=== PATIENT | male | born 1965 | race Caucasian/White ===

== ENCOUNTER 2017-02-21 12:47 | Observation (INO) ==
[2017-02-21 13:46] LABS: Basophils # 0.1 K/mcL (0.0-0.2); Basophils % 0.8 %; Eosinophils # 0.1 K/mcL (0.0-0.6); Eosinophils % 1.4 %; Hematocrit 49.1 % (37.5-50.1); Immature Granulocytes % 0.5 % (0-4); Lymphocytes # 2.6 K/mcL (0.6-4.6); Lymphocytes % 28.5 %; Mean Corpuscular HGB Conc 32.6 g/dL (31.6-35.5); Mean Corpuscular Hemoglobin 28.7 pg (28.0-33.3); Mean Corpuscular Volume 88.2 fL (83.0-100.0); Mean Platelet Volume 10.6 fL (9.4-12.4); Monocytes # 0.9 K/mcL (0.0-1.3); Neutrophils # 5.4 K/mcL (1.6-8.9); Platelet Count 236 K/mcL (140-400); Red Blood Count 5.57 M/mcL (4.19-5.50); Red Cell Distribution Width 13.4 % (11.5-14.5); Segmented Neutrophils % 58.8 %
[2017-02-21 13:59] LABS: BUN/Creatinine Ratio 12 (6-26); Blood Urea Nitrogen 18 mg/dL (8-26); Calcium 9.5 mg/dL (8.6-10.8); Carbon Dioxide 21 mEq/L (19-29); Chloride 106 mEq/L (98-109); Glucose 101 mg/dL (70-99); Osmolality,Calculated 286 (280-300); Potassium 4.7 mEq/L (3.5-4.5); Sodium 137 mEq/L (136-145); eGFR For African Americans > 60 (> 60); eGFR For Non-African Americans 50 (> 60)
[2017-02-21] MEDS ORDERED: Aspirin 325 MG TABLET PO ONE (14:22)
--- NOTE | 2017-02-21 14:45 | Emergency Department Note ---
START Narrative - START START: Notified by lab of positive troponin. Patient placed in fast track been on a monitor. Awaiting a bed in Main Department. Aspirin ordered. Patient evaluated and in no distress.
[2017-02-21] MEDS ORDERED: *HR* Heparin 5,000 UNIT/ML VIAL IVP PRN (14:46)
[2017-02-21] MEDS ORDERED: *HR* Heparin 5,000 UNIT/ML VIAL IVP ONE (14:46)
--- NOTE | 2017-02-21 14:46 | Emergency Department Note ---
Disposition Clinical Impression: Non-STEMI (non-ST elevated myocardial infarction) Disposition: Admitted As Inpatient Condition: Fair Time of Disposition: 14:50 Chest Pain HPI - General Chief Complaint: ED Chest Pain Stated Complaint: chest discomfort Time Seen by Provider: 02/21/17 14:43 Source: patient Limitations: no limitations Vital Signs Reviewed: Yes Nursing Notes Reviewed: Yes - History of Present Illness HPI Narrative: 51-year-old male who presents complaining of chest pain. States he had it off and on for the last couple of days. Was seen in outside facility on Sunday and had a troponin done that was negative. Comes back in here today because of persistent intermittent pain. States when he does anything the pain gets worse. Patient does have a history of previous DE in the past. He saw his physician who was concerned that he may have a pulmonary embolism. And was sent in for evaluation for possible PE. Pt complaint: chest pain Onset (ago): day(s) Duration: intermittent Onset: during exertion Pain Location: substernal, left chest Severity: mild, moderate Severity scale (1-10): 3 Quality: tightness, heaviness Pain Radiation: none Improves with: rest Worsens with: exertion Associated symptoms: Reports: nausea Treatments prior to arrival chest pain: none - Related Data Home Medications Medication Instructions Recorded Confirmed CloNIDine HCl 0.1 mg PO DAILY PRN MDD 1 08/08/16 02/21/17 Nitroglycerin [Nitrostat] 0.4 mg SL Q5M PRN 08/08/16 02/21/17 Omeprazole [PriLOSEC] 40 mg PO DAILY 08/08/16 02/21/17 TraZODone 50 mg PO HS 08/08/16 02/21/17 Valsartan [Diovan] 40 mg PO DAILY 08/08/16 02/21/17 Aspirin Enteric Coated [Aspirin EC] 81 mg PO DAILY 02/21/17 02/21/17 Atorvastatin Calcium [Lipitor] 20 mg PO HS 02/21/17 02/21/17 Carvedilol [Coreg] 25 mg PO BID 02/21/17 02/21/17 Spironolactone [Aldactone] 100 mg PO DAILY 02/21/17 02/21/17 Allergies Allergy/AdvReac Type Severity Reaction Status Date / Time lisinopril AdvReac Mild Cough Verified 02/21/17 12:58 losartan [Losartan] AdvReac Mild BP BOTTOMS Verified 02/21/17 12:58 OUT tamsulosin AdvReac See Verified 02/21/17 12:58 Comments All systems ED: reviewed and negative except as stated. Constitutional: Denies: fever, chills, weakness, weight change Eyes: Denies: eye pain, eye discharge, vision change ENT ED: Denies: ear pain, throat pain, dental pain, hearing loss, epistaxis, congestion, dysphagia Cardiovascular: Reports: chest pain. Denies: palpitations, dyspnea on exertion , edema, syncope Respiratory: Denies: cough, dyspnea, wheezes, hemoptysis, stridor Gastrointestinal: Denies: abdominal pain, nausea, vomiting, diarrhea, constipation, hematemesis, melena, hematochezia Genitourinary: Denies: urgency, dysuria, frequency, hematuria Musculoskeletal: Denies: back pain, neck pain, arthralgia, myalgia Integumentary: Denies: rash, abrasion, lesions Neurological: Denies: headache, weakness, numbness, paresthesias, confusion, abnormal gait, vertigo Psychiatric: Denies: anxiety, depression, suicidal thoughts, homicidal thoughts , auditory hallucinations, visual hallucinations Endocrine: Denies: fatigue Hematological/Lymphatic: Denies: easy bleeding, easy bruising Allergic/Immunologic: Denies: facial swelling, urticaria Chest Pain PMH - Past Medical History Medical history: Reports: arthritis, CVA, GERD, hyperlipidemia, hypertension Surgical history: Reports: cholecystectomy, coronary bypass (CABG) Psychiatric history: Reports: no psych history - Social History Smoking Status: Never smoker Alcohol use: Reports: none Drug use: Reports: marijuana Physical Exam - General Limitations: no limitations General appearance: alert, in no apparent distress - Head Head exam: atraumatic, normocephalic, normal inspection - Eye Eye exam: Present: normal appearance, PERRL, EOMI - ENT ENT exam: normal exam, normal oropharynx, mucous membranes moist - Neck Neck exam: Present: normal inspection, full ROM, trachea midline - Respiratory Respiratory exam: Present: normal lung sounds bilaterally - Cardiovascular Cardiovascular exam: Present: regular rate, normal rhythm, normal heart sounds - Abdominal Exam Abdominal exam: Present: soft, Non-Tender. Absent: tenderness, distention, guarding, rebound, rigidity - Extremities Exam Extremities exam: Present: normal inspection, full ROM. Absent: tenderness, pedal edema - Expanded Lower Extremity Exam Neurovascular/Tendon exam: Absent: motor deficit, sensory deficit, tendon deficit Gait: observed and normal - Back Exam Back exam: Present: normal inspection - Neurological Exam Neurological exam: Present: alert, oriented X3 - Psychiatric Psychiatric exam: Present: normal affect, normal mood - Skin Skin exam: Present: warm Course - Reevaluation(s) Reevaluation #1: 51-year-old with history of previous DE who had 5 way bypass back in 2009 states been having intermittent exertional chest pain for last several days. Seen at outside facility had a negative troponin 2 days ago but continued to have symptoms. On arrival here he does have an elevated troponin of 0.11 with no acute change on his EKG. Appears that this is non-STEMI. We will start anticoagulation and consult cardiology. Time: 14:46 Reevaluation #2: The patient relates that his doctor was concerned about a pulmonary embolism. We ordered a CTA of the chest however his creatinine was elevated and the patient after discussion with him would not consent to the to the CT scan due to possible damage to his kidneys so a VQ scan was ordered and we are waiting on that at this time. Time: 16:40 - Consultations Consultation #1: Discussed with Dr. Duffy cardiology heparinized and admit. Time: 14:53 Consultation #2: Discussed with Dr. Li, admit. Time: 15:06 Vital Signs Temperature 98.0 F 02/21/17 12:53 Pulse Rate 65 02/21/17 12:53 Respiratory Rate 16 02/21/17 12:53 Blood Pressure 136/78 02/21/17 12:53 O2 Sat by Pulse Oximetry 98 02/21/17 12:53 Temperature 98.0 F 02/21/17 12:53 Pulse Rate 62 02/21/17 16:01 Respiratory Rate 18 02/21/17 16:01 Blood Pressure 179/99 02/21/17 16:01 O2 Sat by Pulse Oximetry 96 02/21/17 16:01 Oxygen Delivery Oxygen Delivery Room Air Chest Pain - Lab Data Result diagrams: 02/21/17 13:35 02/21/17 13:35 Lab Results 02/21/17 02/21/17 02/21/17 Range/Units 13:35 13:35 13:35 WBC 9.2 (4.3-11.1) K/mcL RBC 5.57 H (4.19-5.50) M/mcL Hgb 16.0 (12.9-16.9) g/dL Hct 49.1 (37.5-50.1) % MCV 88.2 (83.0-100.0) fL MCH 28.7 (28.0-33.3) pg MCHC 32.6 (31.6-35.5) g/dL RDW 13.4 (11.5-14.5) % Plt Count 236 (140-400) K/mcL MPV 10.6 (9.4-12.4) fL Immature Gran % 0.5 (0-4) % Seg Neutrophils % 58.8 % Lymphocytes % 28.5 % Monocytes % 10.0 % Eosinophils % 1.4 % Basophils % 0.8 % Neutrophils # 5.4 (1.6-8.9) K/mcL Lymphocytes # 2.6 (0.6-4.6) K/mcL Monocytes # 0.9 (0.0-1.3) K/mcL Eosinophils # 0.1 (0.0-0.6) K/mcL Basophils # 0.1 (0.0-0.2) K/mcL PT (9.4-12.1) Seconds INR APTT (26.0-36.0) Seconds Sodium 137 (136-145) mEq/L Potassium 4.7 H (3.5-4.5) mEq/L Chloride 106 (98-109) mEq/L Carbon Dioxide 21 (19-29) mEq/L BUN 18 (8-26) mg/dL Creatinine 1.48 H (0.72-1.25) mg/dL Est GFR ( Amer) > 60 (> 60) Est GFR (Non-Af Amer) 50 L (> 60) BUN/Creatinine Ratio 12 (6-26) Glucose 101 H (70-99) mg/dL Calculated Osmolality 286 (280-300) Calcium 9.5 (8.6-10.8) mg/dL Troponin I 0.11 H* (0-0.03) ng/mL 02/21/17 Range/Units 13:35 WBC (4.3-11.1) K/mcL RBC (4.19-5.50) M/mcL Hgb (12.9-16.9) g/dL Hct (37.5-50.1) % MCV (83.0-100.0) fL MCH (28.0-33.3) pg MCHC (31.6-35.5) g/dL RDW (11.5-14.5) % Plt Count (140-400) K/mcL MPV (9.4-12.4) fL Immature Gran % (0-4) % Seg Neutrophils % % Lymphocytes % % Monocytes % % Eosinophils % % Basophils % % Neutrophils # (1.6-8.9) K/mcL Lymphocytes # (0.6-4.6) K/mcL Monocytes # (0.0-1.3) K/mcL Eosinophils # (0.0-0.6) K/mcL Basophils # (0.0-0.2) K/mcL PT 11.2 (9.4-12.1) Seconds INR 1.0 APTT 34.5 (26.0-36.0) Seconds Sodium (136-145) mEq/L Potassium (3.5-4.5) mEq/L Chloride (98-109) mEq/L Carbon Dioxide (19-29) mEq/L BUN (8-26) mg/dL Creatinine (0.72-1.25) mg/dL Est GFR ( Amer) (> 60) Est GFR (Non-Af Amer) (> 60) BUN/Creatinine Ratio (6-26) Glucose (70-99) mg/dL Calculated Osmolality (280-300) Calcium (8.6-10.8) mg/dL Troponin I (0-0.03) ng/mL Heart Score - Score History: Highly Suspicious EKG: Non Specific repolarisation Disturbance Age: 45-65 Risk Factors: Equal/Greater than 3 risk factor or history of atherosclerotic disease Troponin: 1-3x normal limit HEART Score Total: 7 Critical Care Time Critical Care Time: Yes Total Critical Care Time: 30 Attestation: The high probability of a clinically significant, sudden or life threatening deterioration of the [cardiovascular] system(s) required my full and direct attention, intervention and personal management. The aggregate critical care time was [30] minutes. This time is in addition to time spent performing reported procedures but includes the following: [x] Data Review and interpretation [x] Patient assessment and monitoring of vital signs [x] Documentation [x] Medication orders and management
[2017-02-21 15:03] LABS: Prothrombin Time 11.2 Seconds (9.4-12.1)
[2017-02-21 15:06] LABS: Activated Partial Thrombo Time 34.5 Seconds (26.0-36.0)
--- NOTE | 2017-02-21 15:27 | Cardiology Consult Note ---
Date of Encounter: 02/21/17 Time of Encounter: 15:15 Assessment and Plan (1) Non-STEMI (non-ST elevated myocardial infarction) Current Visit: Yes Status: Acute Initial troponin mildly elevated at 0.11. Trend for total of 3. Symptoms vary. Reports cold symptoms a week and a half ago. Those symptoms resolved, then he started having chest tightness over recent days brought on by exertion and cold air/drinks, deep breaths. Reports fatigue, episodes of diaphoresis. Denies worsening dyspnea. Reports symptoms similar to prior anginal symptoms, but not as severe. Heating pad has been helping with symptoms. In setting of CKD stage 3, creatinine near baseline 1.48. Denies active chest pain, but reports "soreness" and there is tenderness on palpation. On heparin gtt. Resume home ASA, statin, BB. Recommend checking echo to evaluate structure and function. Echo 2014 EF preserved, moderate diastolic dysfunction. No significant EKG changes. NPO after midnight for ischemic eval (possible stress test vs. LHC) in AM depending on troponin trend and echo results. (2) CAD (coronary artery disease) Current Visit: Yes Status: Chronic Hx of 5 vessel CABG in 2009 at [facility]. ASA, Statin, BB, JOSE-I, ARB. Stress test vs. LHC in AM depending on troponin trend and echo. Qualifiers: Coronary Disease-Associated Artery/Lesion type: unspecified vessel or lesion type [place] vs. transplanted heart: [place] heart Associated angina: angina presence unspecified Qualified Code(s): I25.10 - Atherosclerotic heart disease of [place] coronary artery without angina pectoris (3) CKD (chronic kidney disease) stage 3, GFR 30-59 ml/min Current Visit: Yes Status: Chronic Known stage 3 CKD, follows with Dr. Linton as outpt. Current creatinine near baseline, 1.48. Will monitor closely. (4) HTN (hypertension) Current Visit: Yes Status: Acute Currently controlled. Continue to monitor and adjust as necessary. Qualifiers: Hypertension type: essential hypertension Qualified Code(s): I10 - Essential (primary) hypertension Discussion w patient/family: The assessment and plan as outlined above was discussed with the patient and/or family members who expressed understanding and agreement. All questions were answered. Thank you for involving us in the care of your patient. Please call with any questions. I will discuss all the above with Dr. Orquidea Duffy and make changes as necessary. History of Present Illness Consult date: 02/21/17 Requesting physician: Ta Riggs Consult reason: elevated troponin, chest pain Chief complaint: chest tightness History of present illness: Mr. Cleveland is a 51 year old male with PMH of CAD s/p CABG in 2009, CVA, HTN, CKD stage 3 that presented to ED for chest tightness. He reports approximately a week and a half ago he developed cold like symptoms--congestion, cough with productive green sputum. Those symptoms resolved and in recent days he began experiencing chest tightness across his chest and fatigue. He describes the chest tightness and pain as burning, states it is brought on by exertion and also by cold air or drinks. He has been using a heating pad for relief. He reports he feels sore soreness/tenderness right now, but no active pain. He states symptoms feel similar to past anginal equivalent, but not as severe. He denies radiation of pain, but reports intermittent bilateral upper extremity numbness from shoulders to elbows. Denies any facial drooping or slurred speech. He had 2 episodes of diaphoresis over the past week and a half. No worsening of dyspnea. He was evaluated at [place] 2 days ago and reportedly had a negative troponin. Troponin here 0.11 and cardiology consulted. Prior CV testing: Stress test 07/15/15: Perfusion imaging negative for ischemia or infarct. Gated EF 61%. Echo 07/15/15: EF 55-60%, moderate diastolic dysfunction, mildly dilated left atrium. Past Med Surg Social Fam HX - Past Medical History Medical history: arthritis, coronary artery disease, CVA, GERD, hyperlipidemia, hypertension Psychiatric history: no psych history - Past Surgical History Surgical History: cholecystectomy, coronary bypass (CABG) - Social History Smoking Status: Never smoker Smokeless Tobacco Status: No Alcohol use: none Drug use: marijuana Medications and Allergies CloNIDine HCl 0.1 mg PO DAILY PRN MDD 1 08/08/16 [History] Nitroglycerin [Nitrostat] 0.4 mg SL AD PRN 08/08/16 [History] Omeprazole [PriLOSEC] 40 mg PO DAILY 08/08/16 [History] TraZODone 50 mg PO HS 08/08/16 [History] Valsartan [Diovan] 40 mg PO DAILY 08/08/16 [History] Aspirin Enteric Coated [Aspirin EC] 81 mg PO DAILY 02/21/17 [History] Atorvastatin Calcium [Lipitor] 20 mg PO HS 02/21/17 [History] Carvedilol [Coreg] 25 mg PO BID 02/21/17 [History] Spironolactone [Aldactone] 100 mg PO DAILY 02/21/17 [History] Allergies lisinopril Adverse Reaction (Mild, Verified 02/21/17 12:58) Cough losartan [Losartan] Adverse Reaction (Mild, Verified 02/21/17 12:58) BP BOTTOMS OUT tamsulosin Adverse Reaction (Verified 02/21/17 12:58) See Comments All Systems Review: A 10-system review of systems was performed and is negative for pertinent findings except as documented above in the HPI. - Constitutional Constitutional: fatigue - Cardiovascular Cardiovascular: as per HPI, chest pain at rest, chest pain with exertion Physical Examination Vital Signs, Last 4 Hours Temp Pulse Resp BP Pulse Ox 02/21/17 15:11 60 18 118/98 96 02/21/17 12:53 98.0 F 65 16 136/78 98 Vital Signs Temp Pulse Resp BP Pulse Ox 02/21/17 15:11 60 18 118/98 96 02/21/17 12:53 98.0 F 65 16 136/78 98 Intake and Output 02/20/17 02/21/17 02/21/17 23:59 07:59 15:59 Other: Weight 124.738 kg Patient Weight 02/21/17 23:59 Weight 124.738 kg General: Conversant, No Apparent Distress HEENT: Atraumatic, Normocephaly, Mucus Membranes Moist Neck: No JVD, Normal carotid pulses Cardiac: Reg Rate and Rhythm, Normal S1 and S2, No Murmur Lungs: Normal Breath Sounds, No Wheeze, Rales, Rhonchi Neuro: Alert and responsive, No focal deficits noted Abdomen: Soft, Non-Tender Skin: No rashes noted on visualized skin Musculoskeletal: Other (chest tenderness on palpation) Extremities: No Clubbing, No Cyanosis, No Edema, Normal Pulses Results 02/21/17 13:35 02/21/17 13:35 Lab Results 02/21/17 02/21/17 02/21/17 13:35 13:35 13:35 WBC 9.2 Hgb 16.0 Hct 49.1 Plt Count 236 INR APTT Sodium 137 Potassium 4.7 H Chloride 106 Carbon Dioxide 21 BUN 18 Creatinine 1.48 H Glucose 101 H Calcium 9.5 Troponin I 0.11 H* 02/21/17 13:35 WBC Hgb Hct Plt Count INR 1.0 APTT 34.5 Sodium Potassium Chloride Carbon Dioxide BUN Creatinine Glucose Calcium Troponin I Short CBC 02/21/17 Range/Units 13:35 WBC 9.2 (4.3-11.1) K/mcL Hgb 16.0 (12.9-16.9) g/dL Hct 49.1 (37.5-50.1) % Plt Count 236 (140-400) K/mcL Neutrophils # 5.4 (1.6-8.9) K/mcL BMP 02/21/17 Range/Units 13:35 Sodium 137 (136-145) mEq/L Potassium 4.7 H (3.5-4.5) mEq/L Chloride 106 (98-109) mEq/L Carbon Dioxide 21 (19-29) mEq/L BUN 18 (8-26) mg/dL Creatinine 1.48 H (0.72-1.25) mg/dL Glucose 101 H (70-99) mg/dL Calcium 9.5 (8.6-10.8) mg/dL Cardiac Enzymes 02/21/17 Range/Units 13:35 Troponin I 0.11 H* (0-0.03) ng/mL Impressions Chest X-Ray 02/21/17 13:02 IMPRESSION: No acute findings or change from prior examination D/ / Miguel Casiano MD / Miguel Casiano MD Interpreting Provider: Miguel Casiano MD Active Medications Heparin Sodium (Porcine) (Heparin) 4,000 unit IVP Q6HR PRN PRN Reason: SEE COMMENTS Stop: 08/23/17 14:47 Heparin Sodium (Porcine) (Heparin) 2,000 unit IVP Q6H PRN PRN Reason: SEE COMMENTS Stop: 08/23/17 14:47 Heparin Sodium/Dextrose (Heparin 25,000 Unit/500 Ml D5w) 25,000 unit in 500 mls @ 19.983 mls/hr IVC .Q24H WENDY; 8.01 UNIT/KG/HR PRN Reason: Protocol Stop: 08/23/17 15:01 - Imaging and Cardiology Chest Xray: report reviewed Stress Test: report reviewed Echo: report reviewed - EKG Interpretation EKG results cardiology: personally reviewed (SR, mod IVC delay) Consult Discharge Plan - Plan
[2017-02-21] MEDS: Heparin 25,000 UNIT/500 ML D5W 25,000 UNIT/500 ML MLS IVC SCH (15:54)
--- NOTE | 2017-02-21 18:06 | Internal Med History&Physical ---
Date of Encounter: 02/21/17 Time of Encounter: 18:03 Assessment and Plan (1) Non-STEMI (non-ST elevated myocardial infarction) Current visit: Yes Status: Acute chest pain with elevated tropx1. given significant cardiac history, he needs further eval. EKG with no ischemic changes, cardio has been consulted. started on heparin drip, will resume his asa, bb and jose-I planned for ischemic eval tomm possible stress test vs [facility] chest pain free now, will trend trop and continue home meds. (2) CAD (coronary artery disease) Current visit: Yes Status: Chronic Hx of 5 vessel CABG in 2009 at [facility]. ASA, Statin, BB, JOSE-I, ARB. Stress test vs. [facility] in AM depending on troponin trend and echo. Qualifiers: Coronary Disease-Associated Artery/Lesion type: unspecified vessel or lesion type [place] vs. transplanted heart: [place] heart Associated angina: angina presence unspecified Qualified Code(s): I25.10 - Atherosclerotic heart disease of [place] coronary artery without angina pectoris (3) CKD (chronic kidney disease) stage 3, GFR 30-59 ml/min Current visit: Yes Status: Chronic Known stage 3 CKD, follows with Dr. Linton as outpt. Current creatinine near baseline, 1.48. Will monitor closely. (4) HTN (hypertension) Current visit: Yes Status: Acute controlled. Qualifiers: Hypertension type: essential hypertension Qualified Code(s): I10 - Essential (primary) hypertension Internal Medicine - H&P: HPI Chief complaint: chest pain Admitted From: Home Plans for Post Hospital Care: Home History of present illness: Mr. Cleveland is a 51 year old male with PMH of CAD s/p CABG in 2009, CVA, HTN, CKD stage 3 that presented to ED for chest tightness. He reports cold like symptoms with congestion, cough with productive green sputum for 1 week, Those symptoms resolved and now he began experiencing chest tightness across his chest and fatigue. He describes the chest tightness and pain as burning, states it is brought on by exertion , taking deep breaths. He denies radiation of pain , but reports intermittent bilateral upper extremity numbness from shoulders to elbows. Denies any facial drooping or slurred speech. he says one of the family members was down with pneumonia. No worsening of dyspnea. He was evaluated at [place] 2 days ago and reportedly had a negative troponin. Troponin here 0.11 and cardiology consulted. Stress test 07/15/15: Perfusion imaging negative for ischemia or infarct. Gated EF 61%. Echo 07/15/15: EF 55-60%, moderate diastolic dysfunction, mildly dilated left atrium. Past Med Surg Social Fam HX - Past Medical History Medical history: arthritis, CVA, GERD, hyperlipidemia, hypertension Psychiatric history: no psych history - Past Surgical History Surgical History: cholecystectomy, coronary bypass (CABG) - Social History Smoking Status: Never smoker Smokeless Tobacco Status: No Alcohol use: none Drug use: marijuana Internal Medicine - H&P: Meds CloNIDine HCl 0.1 mg PO DAILY PRN MDD 1 08/08/16 [History] Nitroglycerin [Nitrostat] 0.4 mg SL Q5M PRN 08/08/16 [History] Omeprazole [PriLOSEC] 40 mg PO DAILY 08/08/16 [History] TraZODone 50 mg PO HS 08/08/16 [History] Valsartan [Diovan] 40 mg PO DAILY 08/08/16 [History] Aspirin Enteric Coated [Aspirin EC] 81 mg PO DAILY 02/21/17 [History] Atorvastatin Calcium [Lipitor] 20 mg PO HS 02/21/17 [History] Carvedilol [Coreg] 25 mg PO BID 02/21/17 [History] Spironolactone [Aldactone] 100 mg PO DAILY 02/21/17 [History] Allergies lisinopril Adverse Reaction (Mild, Verified 02/21/17 12:58) Cough losartan [Losartan] Adverse Reaction (Mild, Verified 02/21/17 12:58) BP BOTTOMS OUT tamsulosin Adverse Reaction (Verified 02/21/17 12:58) See Comments All Systems PM: A 10-system review of systems was performed and is negative for pertinent findings except as documented above in the HPI. - Constitutional Constitutional: no chills, no fever(s), no night sweats - EENT Eyes: no change in vision, no discharge, no pain, no photophobia Ears: no ear discharge, no ear pain, no tinnitus Nose, mouth and throat: no dysphagia, no nasal discharge, no neck pain, no sore throat - Cardiovascular Cardiovascular ROS IM: chest pain - Respiratory Respiratory: no cough, no dyspnea, no wheezing, no excessive phlegm production - Gastrointestinal Gastrointestinal: no abdominal pain, no diarrhea, no hematemesis, no hematochezia, no melena, no nausea, no vomiting - Musculoskeletal Musculoskeletal ROS IM: no numbness, no tingling - Integumentary Integumentary IM: no rash, no unusual bruising - Constitutional Vitals: Temp Pulse Resp BP Pulse Ox 98.0 F 65 15 162/98 98 02/21/17 17:27 02/21/17 17:27 02/21/17 17:27 02/21/17 17:27 02/21/17 17:27 General appearance: Present: A&O X 3, no acute distress Exam: HEENT: Atraumatic, Normocephaly, Mucus Membranes Moist Neck: No JVD, Normal carotid pulses Cardiac: Reg Rate and Rhythm, Normal S1 and S2, No Murmur Lungs: Normal Breath Sounds, No Wheeze, Rales, Rhonchi Neuro: Alert and responsive, No focal deficits noted Abdomen: Soft, Non-Tender, bs are present Skin: No rashes noted on visualized skin Extremities: No Clubbing, No Cyanosis, No Edema, Normal Pulses Internal Med - H&P Results - Labs CBC & Chem 7: 02/21/17 13:35 02/21/17 13:35 - Impressions ITS Impressions Pulmonary Perfusion Imaging 02/21/17 16:43 IMPRESSION: 1. Low Probability for Pulmonary Embolus. D/ / Zachery Gillette MD / Zachery Gillette MD Interpreting Provider: Zachery Gillette MD
[2017-02-21] MEDS ORDERED: *HR* Morphine 2 MG/ML SYRINGE IVP PRN (18:10)
[2017-02-21] MEDS ORDERED: Naloxone 0.4 MG/ML INJ IVP PRN (18:10)
[2017-02-21] MEDS ORDERED: cloNIDine HCl 0.1 MG TABLET PO PRN (18:11)
[2017-02-21] MEDS ORDERED: Nitroglycerin 0.4 MG TAB.SUBL SL PRN (18:11)
[2017-02-21] MEDS: traZODone 50 MG TABLET PO SCH (21:30)
[2017-02-21] MEDS: *HR* Heparin 5,000 UNIT/ML VIAL IVP PRN (23:14)
[2017-02-22 01:15] LABS: Basophils # 0.1 K/mcL (0.0-0.2); Basophils % 0.8 %; Eosinophils # 0.2 K/mcL (0.0-0.6); Eosinophils % 1.9 %; Hematocrit 45.8 % (37.5-50.1); Immature Granulocytes % 0.2 % (0-4); Lymphocytes % 42.2 %; Mean Corpuscular HGB Conc 32.8 g/dL (31.6-35.5); Mean Corpuscular Hemoglobin 29.1 pg (28.0-33.3); Mean Corpuscular Volume 88.8 fL (83.0-100.0); Mean Platelet Volume 10.8 fL (9.4-12.4); Monocytes # 0.9 K/mcL (0.0-1.3); Monocytes % 9.5 %; Neutrophils # 4.3 K/mcL (1.6-8.9); Platelet Count 184 K/mcL (140-400); Red Blood Count 5.16 M/mcL (4.19-5.50); Red Cell Distribution Width 13.4 % (11.5-14.5); Segmented Neutrophils % 45.4 %
[2017-02-22 02:03] LABS: Calcium 9.6 mg/dL (8.6-10.8)
[2017-02-22] MEDS ORDERED: Acetaminophen 325 MG TABLET PO ONE (09:41)
[2017-02-22] MEDS: Aspirin 81 MG TAB.CHEW PO SCH (09:43)
[2017-02-22] MEDS: Valsartan 80 MG TABLET PO SCH (09:44)
--- NOTE | 2017-02-22 09:48 | Internal Med Progress Note ---
<Mark Soto - Last Filed: 02/22/17 14:07> Date of Encounter: 02/22/17 Time of Encounter: 08:45 - Assessment and plan (1) Non-STEMI (non-ST elevated myocardial infarction) Current Visit: Yes Status: Acute Assessment and plan: Suggested by exertional angina while performing ADLs, with history of CABG. On heparin gtt. Await echo. Appreciate cardiology recs, consideration of further intervention -LHC. (2) Coronary arteriosclerosis after coronary artery bypass grafting Current Visit: Yes Status: Acute Assessment and plan: Per documentation h/o 5-V CABG 2009 Cont asa, statin, BB (3) HTN (hypertension) Current Visit: Yes Status: Acute Assessment and plan: Controlled on current regimen, Coreg Qualifiers: Hypertension type: essential hypertension Qualified Code(s): I10 - Essential (primary) hypertension (4) CKD (chronic kidney disease) stage 3, GFR 30-59 ml/min Current Visit: Yes Status: Chronic Assessment and plan: Baseline SCr ~1.5, steady. V/Q scan 02/21/17: no segmental defects. - Subjective Interval history: Pt seen/eval, would endorse PMH CABG along with events prompting hospitalization. He does report chest discomfort-tightness with exertion, while hospitalized even with getting up to restroom and changing clothes. Awaiting echo. He denies chest pain at rest, dyspnea, fever, chills, nvd. Did have recent family sick contacts. - Constitutional Vitals: Temp Pulse Resp BP Pulse Ox 97.6 F 62 16 129/82 98 02/22/17 07:00 02/22/17 07:00 02/22/17 07:00 02/22/17 07:00 02/21/17 21:55 General appearance: Present: A&O X 3, no acute distress - Head Head exam: Present: atraumatic, normocephalic - Eye Eye exam: Present: EOMI, sclera anicteric - ENT ENT exam: Present: mucous membranes moist - Neck Neck exam general surgery: Present: supple, trachea midline - Respiratory Respiratory exam: Absent: rhonchi, wheezes, tachypnea - Cardiovascular Cardiovascular exam: Present: +S1, +S2. Absent: clicks, JVD - GI/Abdominal GI/Abdominal exam: Present: soft, no peritoneal signs. Absent: tenderness - Extremities Exam Extremities exam: Present: warm, radial pulses palpable and symetrical. Absent : pedal edema Internal Medicine: Result - Labs CBC & Chem 7: 02/22/17 01:06 02/22/17 01:06 Labs: Short CBC 02/22/17 Range/Units 01:06 WBC 9.4 (4.3-11.1) K/mcL Hgb 15.0 (12.9-16.9) g/dL Hct 45.8 (37.5-50.1) % Plt Count 184 (140-400) K/mcL Neutrophils # 4.3 (1.6-8.9) K/mcL BMP 02/22/17 01:06 Sodium 138 Potassium 4.0 Chloride 104 Carbon Dioxide 24 BUN 18 Creatinine 1.55 H Glucose 102 H Calcium 9.6 Cardiac Enzymes 02/21/17 02/22/17 Range/Units 19:35 01:06 Troponin I 0.09 H* 0.09 H* (0-0.03) ng/mL - ABG Interpretation ABG results: PT/INR, D-dimer PT 11.2 Seconds (9.4-12.1) 02/21/17 13:35 - Impressions Impressions Pulmonary Perfusion Imaging 02/21/17 16:43 IMPRESSION: 1. Low Probability for Pulmonary Embolus. D/ / Zachery Gillette MD / Zachery Gillette MD Interpreting Provider: Zachery Gillette MD Consult Discharge Plan - Plan Referrals: Yashira Perez, MATERIALS PLANNING MANAGER [Primary Care Provider] - <Vahid Beauchamp - Last Filed: 02/22/17 18:25> Date of Encounter: 02/22/17 - Assessment and plan (1) Non-STEMI (non-ST elevated myocardial infarction) Current Visit: Yes Status: Acute (2) CAD (coronary artery disease) Current Visit: Yes Status: Chronic Qualifiers: Coronary Disease-Associated Artery/Lesion type: bypass graft [place] vs. transplanted heart: [place] heart Associated angina: with stable angina Qualified Code(s): I25.708 - Atherosclerosis of coronary artery bypass graft(s) , unspecified, with other forms of angina pectoris (3) HTN (hypertension) Current Visit: Yes Status: Acute Qualifiers: Hypertension type: essential hypertension Qualified Code(s): I10 - Essential (primary) hypertension (4) Hypertensive renal disease Current Visit: Yes Status: Chronic Qualifiers: Hypertensive chronic kidney disease stage: stage 1-4 or unspecified chronic kidney disease Qualified Code(s): I12.9 - Hypertensive chronic kidney disease with stage 1 through stage 4 chronic kidney disease, or unspecified chronic kidney disease (5) CKD (chronic kidney disease) stage 3, GFR 30-59 ml/min Current Visit: Yes Status: Chronic - Constitutional Vitals: Temp Pulse Resp BP Pulse Ox 97.8 F 61 16 118/78 98 02/22/17 15:51 02/22/17 15:51 02/22/17 15:51 02/22/17 15:51 02/21/17 21:55 Internal Medicine: Result - Labs CBC & Chem 7: 02/22/17 01:06 02/22/17 01:06 Labs: Short CBC 02/22/17 Range/Units 01:06 WBC 9.4 (4.3-11.1) K/mcL Hgb 15.0 (12.9-16.9) g/dL Hct 45.8 (37.5-50.1) % Plt Count 184 (140-400) K/mcL Neutrophils # 4.3 (1.6-8.9) K/mcL BMP 02/22/17 01:06 Sodium 138 Potassium 4.0 Chloride 104 Carbon Dioxide 24 BUN 18 Creatinine 1.55 H Glucose 102 H Calcium 9.6 Cardiac Enzymes 02/21/17 02/22/17 Range/Units 19:35 01:06 Troponin I 0.09 H* 0.09 H* (0-0.03) ng/mL - ABG Interpretation ABG results: PT/INR, D-dimer PT 11.2 Seconds (9.4-12.1) 02/21/17 13:35 - Attending Attestation I examined this patient and my medical decision-making was reviewed with the Resident Physician on 02/22/17. I agree with the documented findings, disposition and treatment plan as described except to the extent set forth below. Mr. Cleveland is currently in observation for acute NSTEMI with hx of significant CAD. He is high risk due to potential for worsening cardiac status. Mr. Cleveland feels OK now. He has been having exertional chest discomfort but slept better last night. No fever or chills. Appetite OK. To have stress test tomorrow. On heparin drip. Exam Alert. Comfortable Heart reg and distant Lungs clear I/P 1. NSTEMI 2. CAD 3. HTN 4. CKD 3 -most likely from hypertension Further diagnoses and plan as above
[2017-02-22] MEDS ORDERED: Perflutren Lipid Microsphere 1.3 ML in 0.9 % Sodium Chloride 8.7 ML IVP ONE (10:35)
[2017-02-22] MEDS ORDERED: Perflutren Lipid Microsphere 2 ML VIAL ONE (10:40)
[2017-02-22] MEDS ORDERED: Isosorbide MONOnitrate (24 HR) 30 MG TAB.ER.24H PO SCH (11:15)
--- NOTE | 2017-02-22 11:31 | ECHO - Doppler Report ---
Echo with Imaging Enhancement Agent Name: Perry Cleveland Date of Study: 02/22/2017 Date: 1965 Ht: 75.0 in Medical Record#: [id number] Age: 51 Wt: 271.0 lb Gender: Male BSA: 2.5 Order #: [id number] Location: [facility] Room #: 2NE17 Reading Physician: Bayron Burdick MD, [facility] Manager Combination: Anupam Perrin RN Ordering Physician: Valente Meza CNP Primary Physician: Yashira Perez CNP Indications: NSTEMI Impressions: Normal LV systolic function, LVEF 60-65%. Normal right ventricular size and function. No significant valvular dysfunction. Left Ventricular Wall Motion: Rest Echo Findings All wall segments showed normal motion. Findings: Study Quality * Suboptimal echo windows. Echo contrast was used. ECG Findings * Normal sinus rhythm. Left Ventricle * Normal LV systolic function, LVEF 60-65%. * Normal LV chamber size and wall thickness. * Indeterminate diastolic function. Right Ventricle * Normal right ventricular size and function. Left Atrium * Normal left atrial size. Right Atrium * Normal right atrial size. Aorta * Normally sized aortic root. Pericardium * There is no pericardial effusion present. IVC * The IVC is not dilated. Aortic Valve * Aortic valve not well visualized. * Normal aortic valve function. Mitral Valve * Normal mitral valve structure. * Normal mitral valve function. Tricuspid Valve * Tricuspid valve not well visualized. * Normal tricuspid valve function. * Unable to estimate RVSP due to lack of TR jet. Pulmonic Valve * Pulmonic valve not well visualized. * Normal pulmonic valve function. History Hypertension Hypercholesteremia Years 17 Packs 3 Family History of CAD History of CAD/PTCA Myocardial Infarction Coronary Artery Bypass Graft 07/15/2015 a Previous Echo was performed. Contrast: Definity 1.3 ml in 8.7 ml of saline 2 ml. Measurements: BP: 129/ 82 2D Normal Values RVIDd: 2.60 cm IVSd: 1.00 cm 0.6 - 1.0 cm LVIDd: 4.70 cm 3.7 - 5.6 cm LVPWd: 1.00 cm 0.6 - 1.1 cm LVIDs: 3.10 cm 1.5 - 3.6 cm AO: 3.50 cm < 4.0 cm %FS: 34.00 cm >25 % LA volume: 69 Mitral Valve Peak E:.72 m/sec Peak A:.73 m/sec E/A Ratio:1 Updated by Bayron Burdick MD, [facility] on 02/22/2017 11:26:24 AM electronically signed on 02/22/2017 11:26:46 AM with status of Final Wall Motion [place]: 1=Normal, 2=Hypokinesis, 3=Akinesis, 4=Dyskinesis, 5=Aneurysmal, 6=Hyperkinetic, X=Not Visualized (Blank)=Missing
--- NOTE | 2017-02-22 11:42 | Cardiology Progress Note ---
Date of Encounter: 02/22/17 Time of Encounter: 11:30 Assessment and Plan (1) Non-STEMI (non-ST elevated myocardial infarction) Current Visit: Yes Status: Acute Patient presented with mild, adynamic troponin elevation. NSTEMI type I vs. II. Typical/atypical features. No acute ECG changes noted. Discomfort/presentation to not similar to prior MO. Echo pending. CKD 3, SCr worsened today. Continue asa, statin, and betablocker. Given hx of CAD s/p CABG, recommend proceeding with nuclear stress test in AM-- unable to today d/t VQ scan yesterday. Further recommendations pending results. (2) CKD (chronic kidney disease) stage 3, GFR 30-59 ml/min Current Visit: Yes Status: Chronic Known stage 3 CKD, follows with Dr. Linton as outpt. SCr worsened today. Defer mgmt to primary service. (3) CAD (coronary artery disease) Current Visit: Yes Status: Chronic Hx of 5 vessel CABG in 2009 at [facility]. ASA, Statin, BB, JOSE-I, ARB. Qualifiers: Coronary Disease-Associated Artery/Lesion type: bypass graft [place] vs. transplanted heart: [place] heart Associated angina: with stable angina Qualified Code(s): I25.708 - Atherosclerosis of coronary artery bypass graft(s) , unspecified, with other forms of angina pectoris Discussion w patient/family: The assessment and plan as outlined above was discussed with the patient and/or family members who expressed understanding and agreement. All questions were answered. Thank you for involving us in the care of your patient. Please call with any questions. The patient was discussed and reviewed with Dr. Ruiz. Subjective Principal diagnosis: Chest pain, elevated troponin Interval history: Seen and examined. Continue to have chest discomfort with ambulation and movement from side-side. Denies any other symptoms including shortness of breath, palpitations, or edema. Objective Vital Signs, Last 4 Hours Temp Pulse Resp BP 02/22/17 11:37 97.7 F 64 16 136/106 General: Conversant, No Apparent Distress HEENT: Atraumatic, Normocephaly, Mucus Membranes Moist Cardiac: Reg Rate and Rhythm, Normal S1 and S2 Lungs: Normal Breath Sounds Neuro: Alert and responsive Abdomen: Soft Skin: No rashes noted on visualized skin Musculoskeletal: Other (positive chest wall tenderness) Extremities: No Edema, Normal Pulses Results 02/22/17 01:06 02/22/17 01:06 Lab Results 02/21/17 02/21/17 02/22/17 19:35 21:37 01:06 WBC Hgb Hct Plt Count APTT 48.3 H Sodium Potassium Chloride Carbon Dioxide BUN Creatinine Glucose Calcium Troponin I 0.09 H* 0.09 H* 02/22/17 02/22/17 02/22/17 01:06 01:06 05:04 WBC 9.4 Hgb 15.0 Hct 45.8 Plt Count 184 APTT 59.7 H Sodium 138 Potassium 4.0 Chloride 104 Carbon Dioxide 24 BUN 18 Creatinine 1.55 H Glucose 102 H Calcium 9.6 Troponin I Impressions Chest X-Ray 02/21/17 13:02 IMPRESSION: No acute findings or change from prior examination D/ / Miguel Casiano MD / Miguel Casiano MD Interpreting Provider: Miguel Casiano MD Pulmonary Perfusion Imaging 02/21/17 16:43 IMPRESSION: 1. Low Probability for Pulmonary Embolus. D/ / Zachery Gillette MD / Zachery Gillette MD Interpreting Provider: Zachery Gillette MD Active Medications Aspirin (Aspirin) 81 mg PO DAILY [facility] Stop: 08/24/17 09:01 Last Admin: 02/22/17 09:43 Dose: 81 mg Atorvastatin Calcium (Lipitor) 40 mg PO HS WENDY Stop: 08/23/17 21:01 Last Admin: 02/21/17 21:30 Dose: 40 mg Carvedilol (Coreg) 12.5 mg PO BIDWM WENDY PRN Reason: Protocol Stop: 08/23/17 17:01 Last Admin: 02/22/17 09:43 Dose: 12.5 mg Clonidine HCl (Clonidine Hcl) 0.1 mg PO DAILY PRN PRN Reason: Systolic > 175 Stop: 08/23/17 18:12 Heparin Sodium (Porcine) (Heparin) 4,000 unit IVP Q6HR PRN PRN Reason: SEE COMMENTS Stop: 08/23/17 14:47 Heparin Sodium (Porcine) (Heparin) 2,000 unit IVP Q6H PRN PRN Reason: SEE COMMENTS Stop: 08/23/17 14:47 Last Admin: 02/21/17 23:14 Dose: 2,000 unit Heparin Sodium/Dextrose (Heparin 25,000 Unit/500 Ml D5w) 25,000 unit in 500 mls @ 19.983 mls/hr IVC .Q24H WENDY; 8.01 UNIT/KG/HR PRN Reason: Protocol Stop: 08/23/17 15:01 Last Titration: 02/22/17 06:37 Dose: 9.98 unit/kg/hr, 24.9 mls/hr Morphine Sulfate (Morphine Sulfate) 2 mg IVP Q4HR PRN PRN Reason: Severe Pain (7-10) Stop: 08/23/17 18:11 Naloxone HCl (Narcan) 0.4 mg IVP Q2MIN PRN PRN Reason: Opioid Reversal Stop: 08/23/17 18:11 Nitroglycerin (Nitroglycerin) 0.4 mg SL Q5M PRN PRN Reason: Chest Pain Stop: 08/23/17 18:12 Spironolactone (Aldactone) 100 mg PO DAILY [facility] Stop: 08/24/17 09:01 Trazodone HCl (Trazodone) 50 mg PO HS WENDY Stop: 08/23/17 21:01 Last Admin: 02/21/17 21:30 Dose: 50 mg Valsartan (Diovan) 40 mg PO DAILY [facility] Stop: 08/24/17 09:01 Last Admin: 02/22/17 09:44 Dose: 40 mg - Imaging and Cardiology Echo: pending Other Results: 12 hour tele: avg HR=60 SR. - EKG Interpretation EKG results cardiology: personally reviewed Consult Discharge Plan - Plan Referrals: Yashira Perez, CONSTRUCTION TRADES TEACHER [Primary Care Provider] -
--- NOTE | 2017-02-22 11:54 | Electrocardiograph Report ---
[place] [id number] Test Date: 2017-02-21 Pat Name: Perry Cleveland Department: 104 Room: [facility] Gender: M Senior Research Associate: : 1965 Requested By: Jenni See Order Number: [id number] Reading MD: Freddy Ruiz MD Measurements Intervals [place] Rate: 61 P: 7 [place]: 199 QRS: 79 QRSD: 113 T: 69 QT: 368 QTc: 370 Interpretive Statements SINUS RHYTHM Electronically Signed On 02-22-2017 11:53:29 EDT by Freddy Ruiz MD
[2017-02-22] MEDS: *HR* Heparin 5,000 UNIT/ML VIAL IVP PRN (13:47)
[2017-02-22] MEDS ORDERED: 0.9 % Sodium Chloride 1,000 ML IVC SCH (14:15)
[2017-02-22] MEDS: traZODone 50 MG TABLET PO SCH (20:05)
[2017-02-23 01:32] LABS: BUN/Creatinine Ratio 13 (6-26); Blood Urea Nitrogen 18 mg/dL (8-26); Calcium 9.7 mg/dL (8.6-10.8); Carbon Dioxide 28 mEq/L (19-29); Chloride 104 mEq/L (98-109); Glucose 102 mg/dL (70-99); Osmolality,Calculated 292 (280-300); Potassium 4.1 mEq/L (3.5-4.5); Sodium 140 mEq/L (136-145); eGFR For African Americans > 60 (> 60); eGFR For Non-African Americans 52 (> 60)
[2017-02-23] MEDS: Heparin 25,000 UNIT/500 ML D5W 25,000 UNIT/500 ML MLS IVC SCH (02:12)
[2017-02-23] MEDS ORDERED: Regadenoson 0.4 MG/5 ML SYRINGE IVP ONE (07:13)
--- NOTE | 2017-02-23 09:31 | Cardiology Progress Note ---
Date of Encounter: 02/23/17 Time of Encounter: 08:00 Assessment and Plan (1) Non-STEMI (non-ST elevated myocardial infarction) Current Visit: Yes Status: Acute Patient presented with mild, adynamic troponin elevation. NSTEMI type I vs. II. Typical/atypical features. No acute ECG changes noted. Discomfort/presentation to not similar to prior SD. Echo demonstrated preserved LVEF, no wall motion abnormalities. CKD 3, SCr stable. Continue asa, statin, and betablocker. Given hx of CAD s/p CABG, recommend proceeding with nuclear stress test in AM-- discussed with nuclear criticality safety engineer, will need to wait until tomorrow for stress d/t VQ upon admission. Further recommendations pending results. (2) CKD (chronic kidney disease) stage 3, GFR 30-59 ml/min Current Visit: Yes Status: Chronic Known stage 3 CKD, follows with Dr. Linton as outpt. SCr improved today. (3) CAD (coronary artery disease) Current Visit: Yes Status: Chronic Hx of 5 vessel CABG in 2009 at [facility]. ASA, Statin, BB, JOSE-I, ARB. Qualifiers: Coronary Disease-Associated Artery/Lesion type: bypass graft [place] vs. transplanted heart: [place] heart Associated angina: with stable angina Qualified Code(s): I25.708 - Atherosclerosis of coronary artery bypass graft(s) , unspecified, with other forms of angina pectoris Discussion w patient/family: The assessment and plan as outlined above was discussed with the patient and/or family members who expressed understanding and agreement. All questions were answered. Thank you for involving us in the care of your patient. Please call with any questions. The patient was discussed and reviewed with Dr. Ruiz. Subjective Principal diagnosis: Chest pain, elevated troponin Interval history: Seen and examined earlier this AM Continue to have chest discomfort with ambulation and movement from side-side. Denies any other symptoms including shortness of breath, palpitations, or edema. Unfortunately unable to proceed with stress test this AM, discussed with nuclear medicine, will need to wait until tomorrow d/t VQ scan. Objective Vital Signs, Last 4 Hours Temp Pulse Resp BP Pulse Ox 02/23/17 07:05 98.2 F 60 16 144/94 96 General: Conversant, No Apparent Distress HEENT: Atraumatic, Normocephaly, Mucus Membranes Moist Cardiac: Reg Rate and Rhythm, Normal S1 and S2 Lungs: Normal Breath Sounds Neuro: Alert and responsive Abdomen: Soft Skin: No rashes noted on visualized skin Musculoskeletal: No Chest Wall Tenderness Extremities: No Edema, Normal Pulses Results 02/22/17 01:06 02/23/17 00:47 Lab Results 02/22/17 02/22/17 02/23/17 12:25 18:11 00:47 APTT 56.2 H 84.2 H Sodium 140 Potassium 4.1 Chloride 104 Carbon Dioxide 28 BUN 18 Creatinine 1.43 H Glucose 102 H Calcium 9.7 02/23/17 00:47 APTT 72.5 H Sodium Potassium Chloride Carbon Dioxide BUN Creatinine Glucose Calcium - Imaging and Cardiology Stress Test: pending Echo: report reviewed Other Results: 12 hour tele: avg HR=59. No significant pause or event noted. - EKG Interpretation EKG results cardiology: personally reviewed Consult Discharge Plan - Plan Referrals: Yashira Perez ELECTRIC UTILITY LINEWORKER [Primary Care Provider] -
--- NOTE | 2017-02-23 09:38 | Internal Med Progress Note ---
<Mark Soto - Last Filed: 02/23/17 13:20> Date of Encounter: 02/23/17 Time of Encounter: 09:30 - Assessment and plan (1) Non-STEMI (non-ST elevated myocardial infarction) Current Visit: Yes Status: Acute Assessment and plan: Suggested by exertional angina while performing ADLs, with history of CABG. On heparin gtt. 02/22 Echo EF 60%, nml RV size and function, no significant VHD Appreciate cardiology recs, per documentation, radiation from V/Q scan still too high, anticipate nuc stress test for 02/23/17. (2) Coronary arteriosclerosis after coronary artery bypass grafting Current Visit: Yes Status: Acute Assessment and plan: Per documentation h/o 5-V CABG 2009 Cont asa, statin, BB (3) HTN (hypertension) Current Visit: Yes Status: Acute Assessment and plan: Controlled on current regimen, Coreg Qualifiers: Hypertension type: essential hypertension Qualified Code(s): I10 - Essential (primary) hypertension (4) CKD (chronic kidney disease) stage 3, GFR 30-59 ml/min Current Visit: Yes Status: Chronic Assessment and plan: Baseline SCr ~1.5, steady. V/Q scan 02/21/17: no segmental defects. - Subjective Interval history: Pt seen/eval, would endorse continued chest tightness with mild activity. No dyspnea, fever, chills, nvd. He was seen earlier by cardiology, reports radiation from V/Q scan still too high, so postponing stress test for tomorrow. - Constitutional Vitals: Temp Pulse Resp BP Pulse Ox 98.2 F 60 16 144/94 96 02/23/17 07:05 02/23/17 07:05 02/23/17 07:05 02/23/17 07:05 02/23/17 07:05 General appearance: Present: A&O X 3, no acute distress - Head Head exam: Present: atraumatic, normocephalic - Eye Eye exam: Present: EOMI, sclera anicteric - ENT ENT exam: Present: mucous membranes moist - Neck Neck exam general surgery: Present: supple, trachea midline - Respiratory Respiratory exam: Absent: rhonchi, wheezes, tachypnea - Cardiovascular Cardiovascular exam: Present: +S1, +S2. Absent: JVD - GI/Abdominal GI/Abdominal exam: Present: soft, no peritoneal signs. Absent: tenderness - Extremities Exam Extremities exam: Present: warm, radial pulses palpable and symetrical. Absent : pedal edema Internal Medicine: Result - Labs CBC & Chem 7: 02/22/17 01:06 02/23/17 00:47 Labs: BMP 02/23/17 00:47 Sodium 140 Potassium 4.1 Chloride 104 Carbon Dioxide 28 BUN 18 Creatinine 1.43 H Glucose 102 H Calcium 9.7 - ABG Interpretation ABG results: PT/INR, D-dimer PT 11.2 Seconds (9.4-12.1) 02/21/17 13:35 Consult Discharge Plan - Plan Referrals: Yashira Perez, LEATHER GOODS SALES REPRESENTATIVE [Primary Care Provider] - <Vahid Beauchamp - Last Filed: 02/23/17 19:09> Date of Encounter: 02/23/17 - Assessment and plan (1) Non-STEMI (non-ST elevated myocardial infarction) Current Visit: Yes Status: Acute (2) CAD (coronary artery disease) Current Visit: Yes Status: Chronic Qualifiers: Coronary Disease-Associated Artery/Lesion type: bypass graft [place] vs. transplanted heart: [place] heart Associated angina: with stable angina Qualified Code(s): I25.708 - Atherosclerosis of coronary artery bypass graft(s) , unspecified, with other forms of angina pectoris (3) HTN (hypertension) Current Visit: Yes Status: Acute Qualifiers: Hypertension type: essential hypertension Qualified Code(s): I10 - Essential (primary) hypertension (4) Hypertensive renal disease Current Visit: Yes Status: Chronic Qualifiers: Hypertensive chronic kidney disease stage: stage 1-4 or unspecified chronic kidney disease Qualified Code(s): I12.9 - Hypertensive chronic kidney disease with stage 1 through stage 4 chronic kidney disease, or unspecified chronic kidney disease (5) CKD (chronic kidney disease) stage 3, GFR 30-59 ml/min Current Visit: Yes Status: Chronic - Constitutional Vitals: Temp Pulse Resp BP Pulse Ox 98.1 F 63 16 140/102 97 02/23/17 15:51 02/23/17 15:51 02/23/17 15:51 02/23/17 15:51 02/23/17 15:51 Internal Medicine: Result - Labs CBC & Chem 7: 02/22/17 01:06 02/23/17 00:47 Labs: BMP 02/23/17 00:47 Sodium 140 Potassium 4.1 Chloride 104 Carbon Dioxide 28 BUN 18 Creatinine 1.43 H Glucose 102 H Calcium 9.7 - ABG Interpretation ABG results: PT/INR, D-dimer PT 11.2 Seconds (9.4-12.1) 02/21/17 13:35 - Attending Attestation I examined this patient and my medical decision-making was reviewed with the Resident Physician on 02/23/17. I agree with the documented findings, disposition and treatment plan as described except to the extent set forth below. Mr. Cleveland is currently in observation due to chest pain. Mr. Cleveland still cannot have stress test today due to nuclear dye. Otherwise he has no new issues. He remains on heparin. Exam Alert. Comfortable Heart reg I/P 1. Chest pain 2. CAD Further diagnoses and plan as above. Stress test tomorrow.
[2017-02-23] MEDS: Aspirin 81 MG TAB.CHEW PO SCH (11:24)
[2017-02-23] MEDS: Valsartan 80 MG TABLET PO SCH (11:24)
[2017-02-23] MEDS ORDERED: Nitroglycerin 0.4 MG PATCH.TD24 TD ONE (17:48)
[2017-02-23] MEDS ORDERED: Nitroglycerin 1 INCH/GM PACKET TP ONE (18:06)
[2017-02-23] MEDS: *HR* Heparin 5,000 UNIT/ML VIAL SQ SCH (18:58)
[2017-02-23] MEDS: traZODone 50 MG TABLET PO SCH (20:32)
[2017-02-24 05:03] LABS: BUN/Creatinine Ratio 15 (6-26); Blood Urea Nitrogen 22 mg/dL (8-26); Calcium 9.9 mg/dL (8.6-10.8); Carbon Dioxide 25 mEq/L (19-29); Chloride 104 mEq/L (98-109); Glucose 91 mg/dL (70-99); Osmolality,Calculated 291 (280-300); Sodium 139 mEq/L (136-145); eGFR For African Americans > 60 (> 60); eGFR For Non-African Americans 52 (> 60)
[2017-02-24] MEDS: *HR* Heparin 5,000 UNIT/ML VIAL SQ SCH ×2 (05:04→16:48)
[2017-02-24] MEDS ORDERED: Acetaminophen 325 MG TABLET PO PRN (08:32)
[2017-02-24] MEDS ORDERED: Regadenoson 0.4 MG/5 ML SYRINGE IVP ONE (08:47)
--- NOTE | 2017-02-24 09:30 | Event Note ---
Date of Encounter: 02/24/17 Time of Encounter: 09:29 - Cardiology Event Note Pt had worsening chest pain yesterday evening, relieved with nitro patch. Nitro patch removed last night, recurrent chest pain this AM. Given his history of CAD and recurrent chest pain, recommend cancelling stress test and proceeding with [facility]. R/B/A discussed, including risk of contrast induced nephropathy. Pt agrees to proceed. Renal function remains improved from admission and near his baseline. C today.
[2017-02-24] MEDS ORDERED: Nitroglycerin 1 INCH/GM PACKET TP ONE (09:31)
[2017-02-24] MEDS ORDERED: Nitroglycerin 1 INCH/GM PACKET ONE (09:35)
[2017-02-24] MEDS: Aspirin 81 MG TAB.CHEW PO SCH (09:38)
[2017-02-24] MEDS ORDERED: *HR* Midazolam HCl 2 MG/2 ML VIAL ONE ×2 (11:21→11:46)
[2017-02-24] MEDS ORDERED: *HR* FentaNYL (PF) 100 MCG/2 ML VIAL ONE (11:21)
[2017-02-24] MEDS ORDERED: 0.9 % Sodium Chloride 2,000 ML ONE (11:21)
[2017-02-24] MEDS ORDERED: *HR* Heparin 10,000 UNIT/10 ML VIAL ONE (11:22)
[2017-02-24] MEDS ORDERED: Nitroglycerin 1,000 MCG/10 ML VIAL IV ONE (11:22)
[2017-02-24] MEDS ORDERED: Heparin 1,000 UNITS/500 mL NS 500 ML ONE (11:22)
--- NOTE | 2017-02-24 11:36 | Pre-Sedation Evaluation ---
Pre-sedation evaluation - Pre-sedation checklist Date of procedure: 02/24/17 Procedure: [facility] Recent Vitals: Last Vital Signs Temp 97.8 F 02/24/17 11:25 Pulse 67 02/24/17 11:25 Resp 15 02/24/17 11:25 BP 150/104 02/24/17 11:25 Pulse Ox 97 02/24/17 11:25 H&P (including ROS) documented in medical record: Yes Previous reaction to sedatives/anesthetics: No Dietary Status: NPO after Midnight Airway Assessment: Patient can open mouth completely, TMJ function normal ASA Classification *see protocol: CLASS II-Mild systemic disease Plan of Care: Pt appropriate candidate for procedure/moderate/conscious sedation , Risks/benefits of procedure/sedation discussed w/ patient/family
[2017-02-24] MEDS ORDERED: Tirofiban 12.5 MG/250ML 12.5 MG/250 ML BAG ONE (12:21)
[2017-02-24] MEDS ORDERED: *HR* Ticagrelor 90 MG TABLET ONE (12:50)
[2017-02-24] MEDS: Valsartan 80 MG TABLET PO SCH (12:59)
[2017-02-24] MEDS ORDERED: Tirofiban 12.5 MG/250ML 12.5 MG/250 ML BAG IVC SCH (13:00)
[2017-02-24] MEDS: Heparin 25,000 UNIT/500 ML D5W 25,000 UNIT/500 ML MLS IVC SCH (13:08)
--- NOTE | 2017-02-24 13:09 | Invasive Diagnostic Lab Proc ---
Name: Perry Cleveland Date of Study: 02/24/2017 Date: 1965 Ht: 75.2in Medical Record#: [id number] Age: 51 Wt: 272.05lb Gender: Male BSA: 2.51 Order #: [id number] BMI: 33.83 Physicians Procedure Physician: Freddy Ruiz MD, FACC Referring MD: Yashira Perez, PAIGE Referring MD: Staff Name Position Time In Kennedy Goddard RN Monitor 11:36 AM Lilian Alejo RN Hot Blast Worker 11:36 AM Lanie Spicer RT (R) Scrub 11:36 AM Indications Indication Non-Stemi Procedures Performed Procedure L HRT ART/GRFT ANGIO PRQ CARD CHUCKIE STENT W/ANGIO 1 VSL PRQ CARD CHUCKIE STENT W/ANGIO 1 VSL Pre-Procedure Checklist Informed consent is complete signed and on chart. H\\T\\P is on chart. ID band is on and ID verified with patient. Patient NPO for procedure The procedure was described for the patient and questions were answered. Blood Pressure: 143/87 ECG is on chart. Rhythm: NSR Plan of Care Patient will tolerate the procedure without complications. Adequate level of comfort will be maintained. Hemodynamics will remain stable Patient will recover from procedure without complications. Respiratory function will be maintained. Cardiac rhythm will remain stable. Patient temperature will be maintained. Patient and/or family have verbalized understanding of the procedure. Patient Education Chief Complaint/Reason for Test: Cardiac Cath Developmental Category: Adult (18-64 years) Developmentally Appropriate for Age: Yes Learning Barriers: None Education Needs: Procedure Education Method: Verbal Information Taught: Cardiac Cath Educational Evaluation: Able to repeat information Intravenous Access Time IV Size Location DC'd Fluid/Drip Rate Units RN 18g 1 /" Patent On Arrival Rt Antecubital 0.9NaCl 25 ml/hr Lilian Alejo RN Allergies lisinopril losartan tamsulosin Vital Signs Time BP (mmHg) HR (bpm) O2 Sat. RR (bpm) LOC 11:04 AM 143 / 87 69 97 % 15 5 = Fully awake and oriented or at pre-proc level 11:49 AM / % 5 = Fully awake and oriented or at pre-proc level 11:49 AM / % 4 = Oriented but drowsy 12:04 PM / % 4 = Oriented but drowsy 12:19 PM / % 4 = Oriented but drowsy 12:34 PM / % 5 = Fully awake and oriented or at pre-proc level 11:41 AM 149 / 104 60 % 12 11:46 AM 135 / 89 62 97 % 15 11:51 AM 144 / 75 55 98 % 10 11:56 AM 131 / 81 58 96 % 9 12:01 PM 116 / 81 58 97 % 6 12:06 PM 121 / 84 62 96 % 0 12:11 PM 132 / 81 63 99 % 21 12:16 PM 132 / 87 59 98 % 9 12:21 PM 128 / 83 57 99 % 12:26 PM 134 / 85 58 99 % 19 12:32 PM 130 / 85 67 97 % 6 12:36 PM 123 / 82 56 96 % 6 12:42 PM 136 / 87 57 97 % 18 12:47 PM 132 / 93 62 96 % 15 12:52 PM 125 / 90 64 98 % 27 Procedural Medications Time Medication Dose Units Method Given By 11:36 AM Oxygen 2 L/min nasal cannula Lilian Alejo RN 11:45 AM Versed 2 mg Intravenous SapnaLilian hernandez RN 11:45 AM Fentanyl 50 mcg Intravenous Lilian Alejo RN 11:50 AM Versed 1 mg Intravenous StartexLilian hernandez RN 11:58 AM Lidocaine 2% 20 ml Subcutaneous Freddy Ruiz MD, FACC 12:19 PM Heparin 4000 units Intravenous Lilian Alejo RN 12:22 PM Aggrastat Bolus: 62 ml Intravenous Lilian Alejo RN 12:22 PM Aggrastat 12.5mg/250ml 42 ml/hr Intravenous Lilian Alejo RN 12:29 PM Oxygen 3 L/min nasal cannula Lilian Alejo RN 12:30 PM Nitroglycerin 200 mcg Intracoronary Freddy Ruiz MD 12:35 PM Fentanyl 25 mcg Intravenous Lilian Alejo RN 12:50 PM Brilinta 180 mg Orally Lilian Alejo RN ASA Classification: CLASS II- Mild systemic disease (i.e. well-controlled diabetes, hypertension, asthma, cigarette smoking) Kwame Score Preprocedure Postprocedure Activity 2- Moves 4 extremities sustained head lift Activity 2- Moves 4 extremities sustained head lift Circulation 2- SBP +/= 20 points of pre-anesthetic level Circulation 2- SBP +/= 20 points of pre-anesthetic level Consciousness 2- Awake and alert oriented x 3 Consciousness 2- Awake and alert oriented x 3 O2 Saturation 2- Able to maintain O2 satruation of 92% on room air O2 Saturation 2- Able to maintain O2 satruation of 92% on room air Respiratory 2- Able to deep breathe and cough well Respiratory 2- Able to deep breathe and cough well Total Score 10 Total Score 10 Contrast Agent: Isovue Diagnostic Contrast: 177 ml Total Contrast: 177 ml Fluoro Dose: 1516 mGy Activated Clotting Time Time Seconds to Clot 12:40 PM 363 12:58 PM 232 Procedure Log Time Note Enter By 11:32 AM CathStat 11:35 AM Case Start 11:36 AM Pt arrived to labor delivery specialist 2 at 11:36 csmith 11:36 AM Kennedy Goddard RN Position: Monitor Time in: 11:36 csmith 11:36 AM Lilian Alejo RN Position: Hot Blast Worker Time in: 11:36 csmith 11:36 AM Lanie Spicer RT (R) Position: Scrub Time in: 11:36 csmith 11:36 AM Patient charges- Angio tray pack, Navilyst 3mm J, Pulse Oximetry and ACIST tubing and transducer csmith 11:36 AM Time: 11:36 Oxygen on at 2 L/min per nasal cannula by Lilian Alejo RN csmith 11:36 AM Procedure start 11:36 csmith 11:36 AM Physician arrived 11:36 csmith 11:36 AM ASA Class CLASS II- Mild systemic disease (i.e. well-controlled diabetes, hypertension, asthma, cigarette smoking) csmith 11:36 AM Meet and greet completed csmith 11:36 AM Sign in performed according to hospital policy. csmith 11:39 AM Vitals capture started with the following parameters, Patient=Adult, Interval=5 min, Initial Atoptlvp=734 mmHg, Deflation Rate=5 mmHg, Cuff placed on Left Arm 11:40 AM Vitals capture stopped. 11:41 AM Vitals capture started with the following parameters, Patient=Adult, Interval=5 min, Initial Jxrugxgl=873 mmHg, Deflation Rate=5 mmHg, Cuff placed on Left Arm 11:41 AM HR=60 bpm, NPOW=951/104 mmhg, Resp=12 B/min, Comment=sr 11:46 AM HR=62 bpm, JNAV=162/89 mmhg, SpO2=97.0 %, Resp=15 B/min, Comment=sr 11:49 AM Time: 11:45 Versed 2 mg Intravenous [facility] 11:49 AM Time: 11:45 Fentanyl 50 mcg Intravenous Given by Lilian Alejo RN csmith 11:49 AM Time: 11:49 Patient comfortable and pain free: Yes csmith 11:49 AM Time: 11:49LOC: 5 = Fully awake and oriented or at pre-proc level csmith 11:49 AM Hair removed from procedure site in procedure lab using clippers. Bilateral groin prepped with Chloraprep by Kennedy Goddard RN,patient was draped. Skin intact. csmith 11:50 AM Time: 11:50 Versed 1 mg Intravenous Given by Lilian Alejo RN csmith 11:51 AM Recorded ECG: HR=62 Condition=Condition 1 11:51 AM HR=55 bpm, RIIC=042/75 mmhg, SpO2=98.0 %, Resp=10 B/min, Comment=sb 11:52 AM Pressure channel 1 zeroed. 11:56 AM HR=58 bpm, LFQY=676/81 mmhg, SpO2=96.0 %, Resp=9 B/min, Comment=sb 11:57 AM Time out performed according to hospital policy csmith 11:58 AM Time: 11:58 20 ml Lidocaine 2% to right groin Subcutaneous Given by Freddy Ruiz MD, [facility] csmith 11:58 AM Access obtained by percutaneous puncture. 5Fr 10cm Terumo Homer sheath placed in right Femoral artery. [id number] csmith 11:58 AM 0.035 145cm Navilyst 3mmJ wire [id number] csmith 12:00 PM Recorded Pressure: Ao, HR=59, Condition=Condition 1 (Aorta) Ao 127/90/107 12:01 PM 5Fr FR 4 catheter inserted over the wire [facility] csmith 12:01 PM RCA angiography performed in multiple views. csmith 12:01 PM HR=58 bpm, XUNG=883/81 mmhg, SpO2=97.0 %, Resp=6 B/min, Comment=sb 12:02 PM Recorded Pressure: Ao, HR=55, Condition=Condition 1 (Aorta) Ao 112/84/98 12:03 PM SVG to the RPDA angio performed in multiple views. csmith 12:04 PM Time: 11:49 Patient comfortable and pain free: Yes [facility] 12:04 PM Time: 11:49LOC: 4 = Oriented but drowsy csmith 12:05 PM SVG to the 2nd OM \\T\\ 3rd OM angio performed in multiple views. csmith 12:06 PM HR=62 bpm, DXDC=958/84 mmhg, SpO2=96.0 %, Resp=0 B/min, Comment=sr 12:08 PM Catheter removed csmith 12:08 PM 5Fr IM catheter inserted over the wire [id number] csmith 12:10 PM ALVAREZ angiography performed, ALVAREZ not used in grafting csmith 12:11 PM Catheter removed csmith 12:11 PM 5Fr FL 4 catheter inserted over the wire [facility] csmith 12:11 PM LCA angiography performed in multiple views. csmith 12:11 PM HR=63 bpm, GREJ=983/81 mmhg, SpO2=99.0 %, Resp=21 B/min, Comment=sr 12:12 PM Recorded Pressure: Ao, HR=63, Condition=Condition 1 (Aorta) Ao 101/62/75 12:13 PM [facility]ter [facility] 12[facility] PM 5Fr Pigtail catheter inserted over the wire [facility] 12:14 PM Pressure channel 1 zeroed. 12:14 PM Recorded Pressure: LV, HR=63, Condition=Condition 1 (Left Ventricle) LV 127/10/19 12:15 PM Recorded Pressure: LV, Ao, HR=62, Condition=Condition 1 (Left Ventricle) LV 119/-5/9, (Aorta) Ao 128/78/99 12:15 PM Catheter selectively placed in left ventricle csmith 12:15 PM Pressures obtained, no LV gram completed csmith 12:16 PM Bolus angiogram of Aortic root complete: 10 ml/sec for a total of 20 mls csmith 12:16 PM HR=59 bpm, DBCQ=004/87 mmhg, SpO2=98.0 %, Resp=9 B/min, Comment=sb 12:17 PM Lesion found in Mid LAD. Pre Stenosis: 99 Pre VREN Flow: 3: Complete and Brisk Flow/Perfusion csmith 12:19 PM catheter removed [facility] 12[facility]19 PM Time: 12:19 Heparin 4000 units Intravenous Given by Lilian Alejo RN [facility] 12:19 PM Sheath exchanged for a 6 Fr 11 cm Cordis Renetta sheath [id number] [facility] 12:19 PM Time: 12:04 Patient comfortable and pain free: Yes csmith 12:19 PM Time: 12:04LOC: 4 = Oriented but drowsy csmith 12:19 PM PCI Status Urgent csmith 12:20 PM 6Fr CLS 3.5 Runway guide catheter was used to cannulate the PCI vessel successfully. reused? No csmith 12:20 PM .014 PT Graphix 182cm guide wire across target lesion- successful. reused? No [facility] 12:20 PM Inflation device was opened. csmith 12:20 PM 2.5 mm x 12 mm Emerge Monorail balloon across target lesion- successful. reused? No to mid LAD csmith 12:21 PM HR=57 bpm, VXMQ=779/83 mmhg, SpO2=99.0 %, Comment=sb 12: PM Lesion found in Distal RCA. Pre Stenosis: 70 Pre VERN Flow: 3: Complete and Brisk Flow/Perfusion csmith 12: PM Time: 12:22 Aggrastat Bolus: 62 ml Intravenous Given by Lilian Alejo RN Crenshaw pump [facility] 12:23 PM Time: 12: Aggrastat 12.5mg/250ml 42 ml/hr Intravenous Given by Lilian Alejo RN Crenshaw pump csmith 12:23 PM Balloon inflated @ 14 jaimie for 11 seconds csmith 12:24 PM Balloon inflated @ 14 jaimie for 10 seconds csmith 12:25 PM Balloon inflated @ 14 jaimie for 12 seconds csmith 12: PM Balloon catheter removed intact. csmith 12:26 PM HR=58 bpm, XJDE=961/85 mmhg, SpO2=99.0 %, Resp=19 B/min, Comment=sb 12:27 PM 3.5mm x 24mm Synergy bioabsorbable stent across target lesion- successful Lot #[id number] csmith 12:28 PM Stent deployed @ 16 jaimie for 20 seconds csmith 12:29 PM Time: 12:29 Oxygen on at 3 L/min per nasal cannula by Lilian Alejo RN [facility] 12:29 PM Lesion found in Proximal LAD. Pre Stenosis: 50 Pre VERN Flow: 3: Complete and Brisk Flow/Perfusion csmith 12:29 PM Recorded Pressure: Ao, HR=58, Condition=Condition 1 (Aorta) Ao 118/80/98 12:30 PM Time: 12:30 Nitroglycerin 200 mcg Intracoronary Given by Freddy Ruiz MD csmith 12:32 PM HR=67 bpm, ABRR=516/85 mmhg, SpO2=97.0 %, Resp=6 B/min, Comment=sr 12:34 PM stent delivery system removed csmith 12:34 PM wire repositioned to ramus csmith 12:34 PM Time: 12:19LOC: 4 = Oriented but drowsy csmith 12:34 PM Lesion found in Ramus. Pre Stenosis: 80 Pre VERN Flow: 3: Complete and Brisk Flow/Perfusion csmith 12:35 PM 2.0 mm x 12 mm Emerge Monorail balloon across target lesion- successful. reused? No to Ramus csmith 12:36 PM Time: 12:35 Fentanyl 25 mcg Intravenous Given by Lilian Alejo RN csmith 12:36 PM act drawn and running csmith 12:36 PM HR=56 bpm, RPVY=462/82 mmhg, SpO2=96.0 %, Resp=6 B/min, Comment=sb 12:37 PM Balloon inflated @ 12 jaimie for 11 seconds csmith 12:39 PM balloon catheter removed csmith 12:39 PM 2.25mm x 28mm Synergy bioabsorbable stent across target lesion- successful Lot #[id number] csmith 12:40 PM At 12:40 the ACT was 363 seconds. csmith 12:40 PM Stent deployed @ 13 jaimie for 31 seconds csmith 12:42 PM HR=57 bpm, OBGB=936/87 mmhg, SpO2=97.0 %, Resp=18 B/min, Comment=sb 12:43 PM stent delivery system removed csmith 12:43 PM 2.5 mm x 6mm NC Emerge balloon across target lesion- successful. reused? No csmith 12:44 PM Balloon inflated @ 12 jaimie for 12 seconds csmith 12:46 PM catheter, wire and balloon removed csmith 12:47 PM HR=62 bpm, HWCK=960/93 mmhg, SpO2=96.0 %, Resp=15 B/min, Comment=sr 12:48 PM Bolus angiogram of right Femoral complete: 4 ml/sec for a total of 7 mls csmith 12:48 PM Procedure completed at 12:48 csmith 12:49 PM Sign out completed: Radiation Dose 1516 mGy Fluoro Time: 11.2 Isovue 370 - 200ml contrast 177 ml given by Freddy Ruiz MD, FACC. Complications: NoneCardiac Rehab Consult needed: YesConfirmed administered medications: Yes csmith 12:49 PM Isovue 370 - 200ml,1 Bottle(s) used. csmith 12:49 PM Sheath left in place to be pulled on floor/holding area csmith 12:49 PM Time: 12:34 Patient comfortable and pain free: Yes csmith 12:49 PM Time: 12:34LOC: 5 = Fully awake and oriented or at pre-proc level csmith 12:49 PM Post ECG NSR csmith 12:49 PM Post Blood Pressure 132/93 csmith 12:50 PM 12:50 Post Pulses Bilateral DP \\T\\ PT 1+ csmith 12:50 PM Information taught Cardiac Cath and PCI csmith 12:50 PM Time: 12:50 Brilinta 180 mg Orally Given by Lilian Alejo RN csmith 12:52 PM HR=64 bpm, XZNS=201/90 mmhg, SpO2=98.0 %, Resp=27 B/min, Comment=sr 12:58 PM At 12:58 the ACT was 232 seconds. csmith 01:00 PM Report given to Danny BROWN Pt taken to Room [facility]. 13:00 [facility] PM Plavix, Effient or Brilinta given Yes csmith 01:00 PM Delay to floor No csmith 01:00 PM no family present [facility] Complications Complication None Hemodynamics Pressures Site Systolic/A Wave Diastolic/V Wave Mean AO 127 90 107 AO 112 84 98 AO 101 62 75 LV 127 10 19 LV 119 -5 9 AO 128 78 99 AO 118 80 98 Post Procedure Information Blood Pressure: 132/93 mmHg Rhythm: NSR Post procedural instructions were given Closure Device Time Device Success/Fail Manual Compression Site Checks Time Location Status Staff Sheath In? Note 12:52 PM Rt Groin No bleeding/ No Hematoma Lanie Spicer RT (R) Pulses Time Site Pre-Procedure Post-Procedure Note Bilateral DP \\T\\ PT 1+ Bilateral radial 2+ 12:50:00 PM Bilateral DP \\T\\ PT 1+ Updated by Kennedy Goddard RN on 02/24/2017 1:04:43 PM electronically signed on 02/24/2017 1:05:24 PM with status of Final
--- NOTE | 2017-02-24 13:16 | Invasive Diagnostic Lab ---
Name: Perry Cleveland Date of Study: 02/24/2017 Date: 1965 Ht: 191.0 cm /75.2 in Medical Record#: [id number] Age: 51 Wt: 123.4 kg / 272.05 lb Account/Order#: [id number] Gender: Male BSA: 2.51 Order #: [id number] Fluoro Dose: 1516 mGy BMI: 33.83 Procedure Physician: Freddy Ruiz MD, FACC Referring MD: Yashira Perez, DEPUTY FIRE CHIEF Referring MD: Procedures Performed: LEFT HEART CATH W/ GRAFTS Stent w/ PTCA Single Major Vessel Stent w/ PTCA Single Major Vessel Aortic root injection Iliofemoral angiography Indications: Non-Stemi Impressions: There is severe two vessel coronary artery disease. Patient had successful PTCA/Drug-Eluting Stent placement in the ramus \T\ mid LAD. S/P CABG 2/3 patent bypass grafts (SVG PDA and SVG OM 1 2 sequential) Gibson atretic Recommendations: Optimal medical therapy of patient's disease. Aggressive risk factor modification. History/Risk Factors: Chronic Kidney Disease Stage 3 Hypertension Dyslipidemia Family History of CAD Prior [place] Previous CABG Date: 11/12/2009 Procedure Access obtained in the right Femoral artery by percutaneous puncture Patient had successful PTCA/Drug-Eluting Stent placement in the Ramus and mid LAD. Complications: None Contrast: Isovue 177ml Closure Device: Manual Compression Hemodynamics: Pressures Site Systolic/ A Wave Diastolic/ V Wave End Diastolic/ Mean HR AO 127 90 107 59 AO 112 84 98 55 AO 101 62 75 63 LV 127 10 19 63 LV 119 -5 9 64 AO 128 78 99 59 AO 118 80 98 58 Coronary Dominance: right Lesion Findings/Interventions * Left Main Coronary Artery The LMCA is angiographically free of disease. * Left Anterior Descending There is a 50% stenosis in the Proximal LAD. The lesion has a VERN flow of 3. There is a 20 mm long, 99% stenosis in the Mid LAD. The lesion has a VERN flow of 3 and has no thrombus present. An intervention was performed on the Mid LAD with a final stenosis of 0%. There were no lesion complications. The final VERN flow was 3. * Circumflex The Circumflex has mid 100% stenosis * Ramus There is a 24 mm long, 80% stenosis in the Ramus. The lesion has a VERN flow of 3 and has no thrombus present. An intervention was performed on the Ramus with a final stenosis of 0%. There were no lesion complications. The final VERN flow was 3. * Right Coronary Artery There is a 70% stenosis in the mid RCA and 60% distal RCA. The lesion has a VERN flow of 3. Additional Findings: Grafts * The saphenous vein graft to the Right PDA is patent. VERN flow is 2. * The saphenous vein graft to the 2nd Marginal \T\ 3rd Marginal is patent (sequential graft). VERN flow is 2. Interventional Device(s) Vessel Segment Type Name Diameter (mm) Length (mm) Mid LAD Balloon Emerge Monorail 2.5 12 Mid LAD Drug Eluting Stent Synergy 3.5 24 Ramus Balloon Emerge Monorail 2 12 Ramus Drug Eluting Stent Synergy 2.25 28 Ramus Balloon NC Emerge 2.5 6 Updated by Kennedy Goddard RN on 02/24/2017 1:04:11 PM Freddy Ruiz MD, FACC electronically signed on 02/24/2017 1:10:18 PM with status of Final
--- NOTE | 2017-02-24 13:22 | Internal Med Progress Note ---
Date of Encounter: 02/24/17 Time of Encounter: 10:00 - Assessment and plan (1) Non-STEMI (non-ST elevated myocardial infarction) Current Visit: Yes Status: Acute Assessment and plan: At this time patient has had recurrent symptoms. Discussed with cardiology. To have cardiac cath today. (2) CAD (coronary artery disease) Current Visit: Yes Status: Chronic Assessment and plan: Cardiac cath today. Qualifiers: Coronary Disease-Associated Artery/Lesion type: bypass graft [place] vs. transplanted heart: [place] heart Associated angina: with stable angina Qualified Code(s): I25.708 - Atherosclerosis of coronary artery bypass graft(s) , unspecified, with other forms of angina pectoris (3) HTN (hypertension) Current Visit: Yes Status: Acute Assessment and plan: Controlled on current regimen, Coreg Qualifiers: Hypertension type: essential hypertension Qualified Code(s): I10 - Essential (primary) hypertension (4) Hypertensive renal disease Current Visit: Yes Status: Chronic Assessment and plan: Renal function at baseline. Monitor especially with cardiac cath today. Qualifiers: Hypertensive chronic kidney disease stage: stage 1-4 or unspecified chronic kidney disease Qualified Code(s): I12.9 - Hypertensive chronic kidney disease with stage 1 through stage 4 chronic kidney disease, or unspecified chronic kidney disease (5) CKD (chronic kidney disease) stage 3, GFR 30-59 ml/min Current Visit: Yes Status: Chronic Assessment and plan: Creatinine at baseline. - Subjective Interval history: Mr. Cleveland is currently in observation due to chest pain. He is awaiting stress test. Mr. Cleveland had chest discomfort and diaphoresis yesterday and nitropaste started with relief. Discomfort has returned when nitro removed. He also is complaining of a headache. No fever or chills. No nausea or vomiting. - Constitutional Vitals: Temp Pulse Resp BP Pulse Ox 97.8 F 67 15 150/104 97 02/24/17 11:25 02/24/17 11:25 02/24/17 11:25 02/24/17 11:25 02/24/17 11:25 General appearance: Present: A&O X 3, answers questions appropriately - Head Head exam: Present: normocephalic - Eye Eye exam: Present: EOMI, conjuntiva pink - ENT ENT exam: Present: mucous membranes dry - Respiratory Respiratory exam: Present: CTAB. Absent: rhonchi, wheezes - Cardiovascular Cardiovascular exam: Present: RRR. Absent: tachycardia - GI/Abdominal GI/Abdominal exam: Present: soft. Absent: tenderness - Extremities Exam Extremities exam: Present: warm. Absent: pedal edema, tenderness - Neurological Exam Neurological exam: Present: alert, oriented X3, no focal deficits - Psychiatric Psychiatric exam: Present: normal affect, normal mood - Skin Skin exam: Present: dry, warm. Absent: rash Internal Medicine: Result - Labs CBC & Chem 7: 02/22/17 01:06 02/24/17 04:09 Labs: BMP 02/24/17 04:09 Sodium 139 Potassium 4.0 Chloride 104 Carbon Dioxide 25 BUN 22 Creatinine 1.43 H Glucose 91 Calcium 9.9 - ABG Interpretation ABG results: PT/INR, D-dimer PT 11.2 Seconds (9.4-12.1) 02/21/17 13:35 Consult Discharge Plan - Plan Referrals: Yashira Perez, [facility] [Primary Care Provider] -
[2017-02-24] MEDS: 0.9 % Sodium Chloride 1,000 ML IVC SCH ×2 (13:40→17:20)
[2017-02-24] MEDS: *HR* Ticagrelor 90 MG TABLET PO SCH (20:22)
[2017-02-24] MEDS: traZODone 50 MG TABLET PO SCH (20:22)
[2017-02-25] MEDS: *HR* Heparin 5,000 UNIT/ML VIAL SQ SCH (05:56)
[2017-02-25 07:19] VITALS: BP 132/97
[2017-02-25] MEDS: *HR* Ticagrelor 90 MG TABLET PO SCH (07:37)
[2017-02-25] MEDS: Aspirin 81 MG TAB.CHEW PO SCH (07:37)
[2017-02-25] MEDS: Valsartan 80 MG TABLET PO SCH (07:37)
[2017-02-25 09:00] LABS: BUN/Creatinine Ratio 15 (6-26); Blood Urea Nitrogen 20 mg/dL (8-26); Calcium 9.8 mg/dL (8.6-10.8); Carbon Dioxide 27 mEq/L (19-29); Chloride 105 mEq/L (98-109); Glucose 104 mg/dL (70-99); Osmolality,Calculated 293 (280-300); Potassium 4.1 mEq/L (3.5-4.5); Sodium 140 mEq/L (136-145); eGFR For African Americans > 60 (> 60); eGFR For Non-African Americans 57 (> 60)
--- NOTE | 2017-02-25 09:26 | Cardiology Progress Note ---
Date of Encounter: 02/25/17 Time of Encounter: 09:00 Assessment and Plan (1) Non-STEMI (non-ST elevated myocardial infarction) Current Visit: Yes Status: Acute Patient presented with mild, adynamic troponin elevation. No ischemic ECG changes noted. Typical/atypical features. Discomfort/presentation to not similar to prior [place]. TTE 02/22/17: LVEF 60-65%, no significant valvular dysfunction, normal wall motion Patient developed chest discomfort on 02/23/17, stress test was cancelled and LHC was recommended. LHC 02/24/17: s/p successful PTCA/CHUCKIE to mLAD and pRamus, s/p 2 of 3 patent bypass grafts, ALVAREZ atretic. Has been chest pain free since PCI. Post PCI discharge instructions discussed including the importance of uninterrupted DAPT (asa + brilinta) therapy. 30 day free supply card provided. Continue asa, statin, and betablocker. Cardiac rehab consulted. Risk factor modification emphasized. Follow-up with [facility] in 5-7 days, appointment will be coordinated. (2) CKD (chronic kidney disease) stage 3, GFR 30-59 ml/min Current Visit: Yes Status: Chronic Known stage 3 CKD, follows with Dr. Linton as outpt. SCr stable, improved. (3) CAD (coronary artery disease) Current Visit: Yes Status: Chronic Hx of 5 vessel CABG in 2009 at [facility]. ASA, Statin, BB, JOSE-I, ARB. Qualifiers: Coronary Disease-Associated Artery/Lesion type: bypass graft [place] vs. transplanted heart: [place] heart Associated angina: with stable angina Qualified Code(s): I25.708 - Atherosclerosis of coronary artery bypass graft(s) , unspecified, with other forms of angina pectoris Discussion w patient/family: The assessment and plan as outlined above was discussed with the patient and/or family members who expressed understanding and agreement. All questions were answered. Thank you for involving us in the care of your patient. Please call with any questions. The patient was discussed and reviewed with Dr. Ruiz, Cardiology will sign-off, please call with questions. Subjective Principal diagnosis: Chest pain, elevated troponin Interval history: Seen and examined earlier this AM Denies recurrent chest pain or discomfort s/p PCI. No issues with right groin cath site--mild bruising at site. Objective Vital Signs, Last 4 Hours Temp Pulse Resp BP Pulse Ox 02/25/17 07:17 97.9 F 74 18 132/97 96 General: Conversant, No Apparent Distress HEENT: Atraumatic, Normocephaly, Mucus Membranes Moist Cardiac: Reg Rate and Rhythm, Normal S1 and S2 Lungs: Normal Breath Sounds Neuro: Alert and responsive Abdomen: Soft Skin: No rashes noted on visualized skin Musculoskeletal: No Chest Wall Tenderness Extremities: No Edema Other: Right groin: mild bruising at site, dressing removed. No hematoma or oozing noted .+2 DP/PT pulses bilaterally. Results 02/22/17 01:06 02/25/17 07:51 Lab Results 02/25/17 07:51 Sodium 140 Potassium 4.1 Chloride 105 Carbon Dioxide 27 BUN 20 Creatinine 1.32 H Glucose 104 H Calcium 9.8 Active Medications Acetaminophen (Tylenol) 650 mg PO Q6HR PRN PRN Reason: Pain Stop: 08/26/17 08:33 Last Admin: 02/24/17 08:42 Dose: 650 mg Aspirin (Aspirin) 81 mg PO DAILY [facility] Stop: 08/24/17 09:01 Last Admin: 02/25/17 07:37 Dose: 81 mg Atorvastatin Calcium (Lipitor) 40 mg PO HS [facility] Stop: 08/23/17 21:01 Last Admin: 02/24/17 20:22 Dose: 40 mg Carvedilol (Coreg) 12.5 mg PO BIDWM WENDY PRN Reason: Protocol Stop: 08/23/17 17:01 Last Admin: 02/25/17 07:37 Dose: 12.5 mg Clonidine HCl (Clonidine Hcl) 0.1 mg PO DAILY PRN PRN Reason: Systolic > 175 Stop: 08/23/17 18:12 Last Admin: 02/24/17 13:55 Dose: 0.1 mg Heparin Sodium (Porcine) (Heparin) 5,000 unit SQ Q12HCO [facility] Stop: 08/25/17 18:01 Last Admin: 02/25/17 05:56 Dose: 5,000 unit Morphine Sulfate (Morphine Sulfate) 2 mg IVP Q4HR PRN PRN Reason: Severe Pain (7-10) Stop: 08/23/17 18:11 Naloxone HCl (Narcan) 0.4 mg IVP Q2MIN PRN PRN Reason: Opioid Reversal Stop: 08/23/17 18:11 Nitroglycerin (Nitroglycerin) 0.4 mg SL Q5M PRN PRN Reason: Chest Pain Stop: 08/23/17 18:12 Spironolactone (Aldactone) 100 mg PO DAILY [facility] Stop: 08/24/17 09:01 Ticagrelor (Brilinta) 90 mg PO BID [facility] Stop: 08/26/17 21:01 Last Admin: 02/25/17 07:37 Dose: 90 mg Trazodone HCl (Trazodone) 50 mg PO HS [facility] Stop: 08/23/17 21:01 Last Admin: 02/24/17 20:22 Dose: 50 mg Valsartan (Diovan) 40 mg PO DAILY [facility] Stop: 08/24/17 09:01 Last Admin: 02/25/17 07:37 Dose: 40 mg - Imaging and Cardiology Echo: report reviewed Cardiac cath: report reviewed Other Results: 12 hour tele: avg HR=66 SR. No significant event noted. - EKG Interpretation EKG results cardiology: personally reviewed Consult Discharge Plan - Plan Referrals: Yashira Perez, SUPPLY TECHNICIAN [Primary Care Provider] -
--- NOTE | 2017-02-25 09:40 | Discharge Summary ---
Date of Encounter: 02/25/17 Time of Encounter: 09:00 - Discharge Diagnosis (1) HTN (hypertension) Priority: Secondary Status: Acute Qualifiers: Hypertension type: essential hypertension Qualified Code(s): I10 - Essential (primary) hypertension (2) Non-STEMI (non-ST elevated myocardial infarction) Priority: Primary Status: Acute (3) CAD (coronary artery disease) Priority: Primary Status: Chronic Qualifiers: Coronary Disease-Associated Artery/Lesion type: bypass graft [place] vs. transplanted heart: [place] heart Associated angina: with stable angina Qualified Code(s): I25.708 - Atherosclerosis of coronary artery bypass graft(s) , unspecified, with other forms of angina pectoris (4) CKD (chronic kidney disease) stage 3, GFR 30-59 ml/min Priority: Secondary Status: Chronic - Discharge Medications Prescriptions: Atorvastatin [Lipitor] 40 mg PO HS #30 tablet Ticagrelor [Brilinta] 90 mg PO BID #60 tablet Home Medications: CloNIDine HCl 0.1 mg PO DAILY PRN MDD 1 08/08/16 [History] Nitroglycerin [Nitrostat] 0.4 mg SL Q5M PRN 08/08/16 [History] Omeprazole [PriLOSEC] 40 mg PO DAILY 08/08/16 [History] TraZODone 50 mg PO HS 08/08/16 [History] Valsartan [Diovan] 40 mg PO DAILY 08/08/16 [History] Aspirin Enteric Coated [Aspirin EC] 81 mg PO DAILY 02/21/17 [History] Carvedilol [Coreg] 25 mg PO BID 02/21/17 [History] Spironolactone [Aldactone] 100 mg PO DAILY 02/21/17 [History] Atorvastatin [Lipitor] 40 mg PO HS #30 tablet 02/25/17 [Rx] Ticagrelor [Brilinta] 90 mg PO BID #60 tablet 02/25/17 [Rx] Allergies/Adverse Reactions: Allergies lisinopril Adverse Reaction (Mild, Verified 02/21/17 12:58) Cough losartan [Losartan] Adverse Reaction (Mild, Verified 02/21/17 12:58) BP BOTTOMS OUT tamsulosin Adverse Reaction (Verified 02/21/17 12:58) See Comments Procedures/tests Complete & Pending: Procedures Performed prior 72 hours Category Date Time Status CL Cardiac Catheterization [CL] Routine 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 02/24/17 09:30 Completed EV echocardiogram w enhance Routine Y 02/22/17 16:03 Completed Date of admission: 02/21/17 15:50 Primary care physician: Yashira Perez CNP Consults: 02/21/17 16:11 Consult to Cardiac Rehabilitation-Phase1 [CONS] Routine Comment: Reason for Consult: NSTEMI Call Completed: Yes Discharging clinician: Gerson Thomason Anticipated date of discharge: 02/25/17 - Patient Status Disposition: Home, Self-Care Condition: Good Functional capacity at discharge: independent ambulation Overall status at discharge: patient is back to baseline - Discharge Instructions Follow Up With: Yashira Perez CNP [Primary Care Provider] - - Diet and Activity Activity: increase activity as tolerated Diet: low fat, low cholesterol, low salt diet Interval History: Mr. Cleveland is a 51 year old male with PMH of CAD s/p CABG in 2009, CVA, HTN, CKD stage 3 that presented to ED for chest tightness. He reports cold like symptoms with congestion, cough with productive green sputum for 1 week, Those symptoms resolved and now he began experiencing chest tightness across his chest and fatigue. He describes the chest tightness and pain as burning, states it is brought on by exertion , taking deep breaths. He denies radiation of pain , but reports intermittent bilateral upper extremity numbness from shoulders to elbows. Denies any facial drooping or slurred speech. he says one of the family members was down with pneumonia. No worsening of dyspnea. He was evaluated at [facility] 2 days ago and reportedly had a negative troponin. Troponin here 0.11 and cardiology consulted. Stress test 07/15/15: Perfusion imaging negative for ischemia or infarct. Gated EF 61%. Echo 07/15/15: EF 55-60%, moderate diastolic dysfunction, mildly dilated left atrium. Hospital course: Mr. Cleveland is a 51 year old male admitted for chest pain with elevated troponin. Cardiology consult was called. Patient was considered NSTEMI. LHC has been done, and 2 stent has been placed. After treatment, patient is pain- free. Vital signs stable. Discuss with cardiology, will discharge patient home with DAPT, BB, Statin, and ARB. Patient was seen and examined. He is awake alert, oriented 3, vital signs stable, denies chest pain or shortness of breath. Patient is stable to discharge home. Continue follow-up with cardiology and PCP as outpatient. - Time Spent with Patient Total time spent providing and/or coordinating discharge services: Greater than 30 minutes - Constitutional Vitals: Temp Pulse Resp BP Pulse Ox 97.9 F 74 18 132/97 96 02/25/17 07:17 02/25/17 07:17 02/25/17 07:17 02/25/17 07:17 02/25/17 07:17 General appearance: Present: A&O X 3, answers questions appropriately - Head Head exam: Present: atraumatic, normocephalic - Eye Eye exam: Present: PERRL, conjuntiva pink, sclera anicteric Pupils: Present: PERRL - Neck Neck exam general surgery: Present: supple, trachea midline. Absent: lymphadenopathy - Respiratory Respiratory exam: Present: CTAB. Absent: accessory muscle use, rales, rhonchi, wheezes - Cardiovascular Cardiovascular exam: Present: RRR, +S1, +S2. Absent: diastolic murmur, gallop, rubs, systolic murmur - GI/Abdominal GI/Abdominal exam: Present: normal bowel sounds, soft, no peritoneal signs. Absent: distended, tenderness - Extremities Exam Extremities exam: Present: warm, radial pulses palpable and symetrical. Absent : calf tenderness, cyanotic, pedal edema - Neurological Exam Neurological exam: Present: CN II-XII intact, oriented X3, no focal deficits. Absent: pronater drift, facial droop, speech deficit - Skin Skin exam: Present: dry, intact
== END 2017-02-25 11:05 | disposition home or self-care (01) ==
LOC: EMEROO 12:47 → 2NENU 12:47 → SUATTDRO 15:50 → 2NENU 17:38 → 2NNU 02-24 12:41
PROVIDERS: ADMIT Internal Medicine Endocrinology, Diabetes & Metabolism; ATTEND Internal Medicine

== ENCOUNTER 2020-08-02 12:00 | Observation (INO) ==
[2020-08-02 12:40] LABS: Basophils # 0.1 K/mcL (0.0-0.2); Eosinophils # 0.1 K/mcL (0.0-0.6); Eosinophils % 1.5 %; Hemoglobin 17.4 g/dL (12.9-16.9); Immature Granulocytes % 0.3 % (0-4); Lymphocytes # 2.4 K/mcL (0.6-4.6); Lymphocytes % 33.3 %; Mean Corpuscular HGB Conc 32.2 g/dL (31.6-35.5); Mean Corpuscular Volume 90.2 fL (83.0-100.0); Mean Platelet Volume 10.5 fL (9.4-12.4); Monocytes # 0.7 K/mcL (0.0-1.3); Monocytes % 10.2 %; Neutrophils # 3.9 K/mcL (1.6-8.9); Platelet Count 202 K/mcL (140-400); Red Blood Count 5.99 M/mcL (4.19-5.50); Red Cell Distribution Width 13.3 % (11.5-14.5); Segmented Neutrophils % 53.7 %; White Blood Count 7.2 K/mcL (4.3-11.1)
[2020-08-02 12:58] LABS: Alanine Aminotransferase 21 Units/L (7-52); Albumin 4.4 g/dL (3.5-5.7); Albumin/Globulin Ratio 1.6 (1.1-2.2); Alkaline Phosphatase 84 Units/L (34-104); Aspartate Amino Transferase 14 Units/L (13-39); BUN/Creatinine Ratio 12 (6-26); Bilirubin,Total 1.3 mg/dL (0.3-1.0); Blood Urea Nitrogen 17 mg/dL (6-20); Calcium 9.4 mg/dL (8.6-10.3); Carbon Dioxide 31 mEq/L (23-29); Chloride 102 mEq/L (98-107); Globulin 2.8 g/dL (2.4-3.5); Glucose 98 mg/dL (70-105); Osmolality,Calculated 290 (280-300); Potassium 3.5 mEq/L (3.5-5.1); Sodium 139 mEq/L (136-145); Total Protein 7.2 g/dL (6.4-8.9); Troponin I < 0.03 ng/mL (< 0.04); eGFR For African Americans > 60 (> 60); eGFR For Non-African Americans 52 (> 60)
[2020-08-02] MEDS ORDERED: *HR* HYDROcodone/Acet 5/325 mg TABLET PO PRN (15:55)
[2020-08-02] MEDS ORDERED: Ondansetron 4 MG/2 ML VIAL IVP PRN (15:55)
[2020-08-02] MEDS ORDERED: Acetaminophen 325 MG TABLET PO PRN (15:55)
[2020-08-02] MEDS: amLODIPine 5 MG TABLET PO SCH (16:17)
[2020-08-02] MEDS: carvediloL 25 MG TABLET PO SCH (16:18)
[2020-08-02] MEDS ORDERED: traZODone 50 MG TABLET PO ONE (22:36)
[2020-08-03 02:33] LABS: Hematocrit 51.8 % (37.5-50.1); Hemoglobin 17.3 g/dL (12.9-16.9); Mean Corpuscular HGB Conc 33.4 g/dL (31.6-35.5); Mean Corpuscular Volume 89.9 fL (83.0-100.0); Mean Platelet Volume 10.9 fL (9.4-12.4); Platelet Count 204 K/mcL (140-400); Red Blood Count 5.76 M/mcL (4.19-5.50); Red Cell Distribution Width 13.4 % (11.5-14.5)
[2020-08-03 02:50] LABS: BUN/Creatinine Ratio 14 (6-26); Blood Urea Nitrogen 17 mg/dL (6-20); Calcium 9.5 mg/dL (8.6-10.3); Carbon Dioxide 27 mEq/L (23-29); Chloride 101 mEq/L (98-107); Glucose 115 mg/dL (70-105); Osmolality,Calculated 286 (280-300); Potassium 3.2 mEq/L (3.5-5.1); Sodium 137 mEq/L (136-145); Troponin I < 0.03 ng/mL (< 0.04); eGFR For African Americans > 60 (> 60); eGFR For Non-African Americans > 60 (> 60)
[2020-08-03 03:48] LABS: Estimated Average Glucose 123 mg/dl
[2020-08-03] MEDS: carvediloL 25 MG TABLET PO SCH (08:35)
[2020-08-03] MEDS: amLODIPine 5 MG TABLET PO SCH (08:35)
[2020-08-03] MEDS ORDERED: *HR* Enoxaparin 30 MG/0.3 ML SYRINGE SQ SCH (09:00)
[2020-08-03 10:43] VITALS: BP 151/94
== END 2020-08-03 11:45 | disposition home or self-care (01) ==
LOC: 3ANU 12:00 → EMEROOARM 12:00 → SUATTDRO 14:17 → 3ANU 15:43
PROVIDERS: ADMIT Internal Medicine; ATTEND Internal Medicine